=== PATIENT | male | born 1940 | race Caucasian/White ===

== ENCOUNTER → 2018-11-25 | Emergency (ER) | payer MEDICARE ==
[~2018-11-25] MED LIST: ENOXAPARIN SODIUM SQ ONE; ENOXAPARIN SODIUM SQ STA; Sodium Chloride 0.9% 1000 ML 1,000 ML IV STA; Sodium Chloride 0.9% 1000 ML 1,000 ML ONE
--- NOTE | 2018-11-25 12:11 | ERPHSYRPT ---
- History of Present Illness Time Seen by Provider: 11/25/18 11:59 Source: patient, EMS Exam Limitations: no limitations Physician History: The patient is an 78-year-old male brought in by ambulance from [facility] where he had a near syncopal episode (dizziness). He has been having frequent dizzy spells recently. He states that the dizziness started at least 2 years ago. 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 His daughter does not think his traffic agent knows about them. When he has a dizzy spell, his heart rate increases very high. He states his blood pressure goes low. It would then resolve after several minutes to an hour. He denies chest pain or shortness of breath. He denies nausea or vomiting. His past medical history significant for HTN, GERD, BPH, cardiac stent, CAD, and high cholesterol. Witnessed: bystander Prior Episodes: single episode today Timing/Duration: today, resolved prior to arrival, sudden Precipitating Factors: none Context: standing Loss of Consciousness: no loss of consciousness, dazed Charcter of event(s): felt faint Allergies/Adverse Reactions: No Known Drug Allergies Allergy (Verified 11/25/18 12:00) Home Medications: Aspirin [Aspirin EC] 81 mg PO DAILY 01/04/14 [History] Finasteride 5 mg [Proscar 5 MG] 5 mg PO DAILY 01/04/14 [History] Fluticasone Propionate [Flonase NASAL] 2 spray NS DAILY 01/04/14 [History] Metoprolol Succinate 25 mg Xl* [Toprol-Xl 25MG Tablets] 12.5 mg PO BID [History] Multivitamin [Multivitamins] 1 each PO DAILY 01/04/14 [History] [place]-3 Fatty Acids/Fish Oil [Fish Oil 1,000 mg Capsule] 1,000 mg PO DAILY 01/04/14 [History] Pravastatin Sodium [Pravachol] 40 mg PO BID 01/04/14 [History] Pregabalin [Lyrica] 150 mg PO BID 01/04/14 [History] Vitamin B Complex [B Complex] 1 each PO DAILY 01/04/14 [History] Clopidogrel Bisulfate 75 mg [PLAVIX 75 MG Tablet] 75 mg PO HS 11/25/18 [ History] Docusate Sodium 100 mg [Colace 100 MG] 100 mg PO DAILY 11/25/18 [History] Isosorbide Mononitrate 30 mg [Imdur 30 MG] 30 mg PO DAILY 11/25/18 [History ] LORazepam [Lorazepam] 1 mg PO TID 11/25/18 [History] Lisinopril [Zestril] 5 mg PO BID 11/25/18 [History] Ranitidine HCl [Zantac] 300 mg PO DAILY 11/25/18 [History] Tamsulosin HCl 0.4 mg [Flomax 0.4 MG] 0.8 mg PO DAILY 11/25/18 [History] Hx Influenza Vaccination/Date Given: Yes (2012) Hx Pneumococcal Vaccination/Date Given: Yes (2012) - Past Medical History Pertinent Past Medical History: Yes Neurological History: Peripheral Neuropathy ENT History: No Pertinent History Cardiac History: Angina, Coronary Artery Disease Respiratory History: COPD, Other Endocrine Medical History: No Pertinent History Musculoskeletal History: Arthritis GI Medical History: GERD History: No Pertinent History Psycho-Social History: No Pertinent History Male Reproductive Disorders: Prostate Problems Other Medical History: benign prostatic hyperplasia. allery seasonal. - Past Surgical History Past Surgical History: Yes Neuro Surgical History: No Pertinent History Cardiac: Cardiac Catheterization Respiratory: No Pertinent History Gastrointestinal: No Pertinent History Genitourinary: No Pertinent History Musculoskeletal: Orthopedic Surgery Male Surgical History: No Pertinent History Other Surgical History: left knee surgery - Social History Smoking Status: Former smoker How long have you smoked: 20years Drug Use: none - Review of Systems Constitutional: No Fever, No Chills Eyes: No Symptoms Ears, Nose, & Throat: No Symptoms Respiratory: No Cough, No Dyspnea Cardiac: Palpitations, No Chest Pain, No Edema, No Syncope Abdominal/Gastrointestinal: No Abdominal Pain, No Nausea, No Vomiting, No Diarrhea Genitourinary Symptoms: No Dysuria Musculoskeletal: No Back Pain, No Neck Pain Skin: No Rash Neurological: Dizziness Psychological: No Symptoms Endocrine: No Symptoms Hematologic/Lymphatic: No Symptoms Immunological/Allergic: No Symptoms All Other Systems: Reviewed and Negative Physical Exam - Nursing Vital Signs Nursing Vital Signs: Initial Vital Signs Temperature 98.0 F 11/25/18 12:02 Pulse Rate 124 H 11/25/18 12:02 Respiratory Rate 18 11/25/18 12:02 Blood Pressure 107/69 11/25/18 12:02 O2 Sat by Pulse Oximetry 96 11/25/18 12:02 Pain Scale Pain Intensity 0 - Nina Coma Scale Best Eye Response ([place]): (4) open spontaneously Best Verbal Response (Nina): (5) oriented Best Motor Response (Nina): (6) obeys commands [place] Total: 15 - Physical Exam General Appearance: no apparent distress, alert Eye Exam: bilateral eye: normal inspection, PERRL, EOMI Ears, Nose, Throat Exam: normal ENT inspection, pharynx normal, moist mucous membranes Neck Exam: normal inspection, non-tender, supple, full range of motion Respiratory: normal breath sounds, lungs clear, No chest tenderness, No respiratory distress Cardiovascular: normal heart sounds, tachycardia Gastrointestinal: soft, No tenderness, No distention, No mass Rectal Exam: not done Back Exam: normal inspection, normal range of motion, No CVA tenderness, No vertebral tenderness Extremity Exam: normal inspection, normal range of motion, pelvis stable, No tenderness Mental Status: alert, oriented x 3, 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 Exam: normal speech, PERRL, No facial droop Coordination/Gait: normal finger to nose Motor/Sensory: no motor deficit, no sensory deficit, no pronator drift Skin Exam: normal color, warm, dry, No rash SpO2 Interpretation: normal O2 Delivery: Room Air - Course EKG Interpreted by Me: RATE, Sinus Tach, NORMAL AXIS, NORMAL INTERVALS, NORMAL QRS, Other (old anterior MS, comp EKG from 06/20/14.) - Radiology Exams Chest X-ray Interpretation: Interpreted by me, Negative (non acute 2V chest, comp 2V chest 06/05/18.) Ordered Tests: Active Orders 24 hr Category Date Time Status Phytochemistry Professor STAT Care 11/25/18 12:19 Active Clean Catch Urine Specimen STAT Care 11/25/18 12:17 Active EKG-ER Only STAT Care 11/25/18 12:17 Active IV Insertion STAT Care 11/25/18 12:17 Active Orthostatic Vital Signs STAT Care 11/25/18 12:17 Active Pulse Oximetry (ED) STAT Care 11/25/18 12:17 Active CHEST 2 VIEWS (PA AND LAT) Stat Exams 11/25/18 12:18 Taken CBC W DIFF Stat Lab 11/25/18 12:10 Completed CMP Stat Lab 11/25/18 12:10 Completed D-DIMER QUANTITATION Stat Lab 11/25/18 12:10 Completed ETHYL ALCOHOL Stat Lab 11/25/18 12:10 Completed Lactic Acid Stat Lab 11/25/18 12:20 Completed Lactic Acid Stat Lab 11/25/18 14:58 Ordered TROPONIN Q3H Lab 11/25/18 12:10 Completed TROPONIN Q3H Lab 11/25/18 15:30 Ordered TROPONIN Q3H Lab 11/25/18 18:30 Ordered TROPONIN Q3H Lab 11/25/18 21:30 Ordered TROPONIN Q3H Lab 11/26/18 00:30 Ordered UA W/RFX UR CULTURE Stat Lab 11/25/18 13:30 Completed Medication Summary Discontinued Medications Generic Name Dose Route Start Last Admin Trade Name Freq PRN Reason Stop Dose Admin Sodium Chloride 1,000 mls @ 999 mls/hr 11/25/18 12:17 11/25/18 12:45 Sodium Chloride 0.9% 1000 Ml IV 11/25/18 13:17 999 mls/hr .Q1H1M STA Administration Sodium Chloride Confirm 11/25/18 12:41 Sodium Chloride 0.9% 1000 Ml Administered 11/25/18 12:42 Dose 1,000 mls @ ud .ROUTE .STK-MED ONE Lab/Rad Data: Laboratory Result Diagrams 11/25/18 12:10 11/25/18 12:10 Laboratory Results 11/25/18 11/25/18 11/25/18 Range/Units 13:30 12:20 12:10 WBC (4.0-10.5) K/mm3 RBC (4.1-5.6) M/mm3 Hgb (12.5-18.0) gm/dl Hct (42-50) % MCV (78-100) fl MCH (26-32) pg MCHC (32-36) g/dl RDW (11.5-14.0) % Plt Count (150-450) K/mm3 MPV (6-9.5) fl Gran % (36.0-66.0) % Eos # (Auto) (0-0.5) Absolute Lymphs (auto) (1.0-4.6) Absolute Monos (auto) (0.0-1.3) Lymphocytes % (24.0-44.0) % Monocytes % (0.0-12.0) % Eosinophils % (0.00-5.0) % Basophils % (0.0-0.4) % Absolute Granulocytes (1.4-6.9) Basophils # (0-0.4) D-Dimer (215-500) ng/mL Sodium (137-145) mmol/L Potassium (3.5-5.1) mmol/L Chloride (98-107) mmol/L Carbon Dioxide (22-30) mmol/L Anion Gap (5-15) MEQ/L BUN (9-20) mg/dL Creatinine (0.66-1.25) mg/dL Estimated GFR ML/MIN Glucose (74-106) mg/dL Lactic Acid 2.1 H (0.4-2.0) Calcium (8.4-10.2) mg/dL Total Bilirubin (0.2-1.3) mg/dL AST (17-59) U/L ALT (0-50) U/L Alkaline Phosphatase (38-126) U/L Troponin I 0.019 (0.000-0.034) ng/mL Serum Total Protein (6.3-8.2) g/dL Albumin (3.5-5.0) g/dL Urine Color YELLOW (YELLOW) Urine Appearance SLIGHTLY CLOUDY (CLEAR) Urine pH 5.0 (5-6) Ur Specific [place] 1.014 (1.005-1.025) Urine Protein 30 (Negative) Urine Ketones SMALL (NEGATIVE) Urine Blood NEGATIVE (0-5) Josep/ul Urine Nitrite NEGATIVE (NEGATIVE) Urine Bilirubin NEGATIVE (NEGATIVE) Urine Urobilinogen NEGATIVE (0-1) mg/dL Ur Leukocyte Esterase NEGATIVE (NEGATIVE) Urine WBC (Auto) 0-2 (0-5) /HPF Urine RBC (Auto) NONE (0-2) /HPF U Hyaline Cast (Auto) 3-5 (0-2) /LPF U Epithel Cells (Auto) RARE (FEW) /HPF Urine Bacteria (Auto) RARE (NEGATIVE) /HPF Other Casts (Auto) 0-2 (NEGATIVE) /LPF Urine Mucus (Auto) SLIGHT (NEGATIVE) /HPF Urine Culture Reflexed NO (NO) Urine Glucose NEGATIVE (NEGATIVE) mg/dL Ethyl Alcohol (0-10) mg/dL 11/25/18 11/25/18 11/25/18 Range/Units 12:10 12:10 12:10 WBC 12.1 H (4.0-10.5) K/mm3 RBC 4.19 (4.1-5.6) M/mm3 Hgb 13.9 (12.5-18.0) gm/dl Hct 41.7 L (42-50) % MCV 99.5 (78-100) fl MCH 33.2 H (26-32) pg MCHC 33.3 (32-36) g/dl RDW 13.4 (11.5-14.0) % Plt Count 238 (150-450) K/mm3 MPV 10.8 H (6-9.5) fl Gran % 65.0 (36.0-66.0) % Eos # (Auto) 0.18 (0-0.5) Absolute Lymphs (auto) 3.08 (1.0-4.6) Absolute Monos (auto) 0.93 (0.0-1.3) Lymphocytes % 25.4 (24.0-44.0) % Monocytes % 7.7 (0.0-12.0) % Eosinophils % 1.5 (0.00-5.0) % Basophils % 0.4 (0.0-0.4) % Absolute Granulocytes 7.90 H (1.4-6.9) Basophils # 0.05 (0-0.4) D-Dimer 1276 H* (215-500) ng/mL Sodium 138 (137-145) mmol/L Potassium 4.4 (3.5-5.1) mmol/L Chloride 101 (98-107) mmol/L Carbon Dioxide 22 (22-30) mmol/L Anion Gap 19.9 H (5-15) MEQ/L BUN 17 (9-20) mg/dL Creatinine 1.80 H (0.66-1.25) mg/dL Estimated GFR 38.9 ML/MIN Glucose 126 H (74-106) mg/dL Lactic Acid (0.4-2.0) Calcium 9.9 (8.4-10.2) mg/dL Total Bilirubin 1.10 (0.2-1.3) mg/dL AST 33 (17-59) U/L ALT 20 (0-50) U/L Alkaline Phosphatase 114 (38-126) U/L Troponin I (0.000-0.034) ng/mL Serum Total Protein 8.0 (6.3-8.2) g/dL Albumin 4.9 (3.5-5.0) g/dL Urine Color (YELLOW) Urine Appearance (CLEAR) Urine pH (5-6) Ur Specific [place] (1.005-1.025) Urine Protein (Negative) Urine Ketones (NEGATIVE) Urine Blood (0-5) Josep/ul Urine Nitrite (NEGATIVE) Urine Bilirubin (NEGATIVE) Urine Urobilinogen (0-1) mg/dL Ur Leukocyte Esterase (NEGATIVE) Urine WBC (Auto) (0-5) /HPF Urine RBC (Auto) (0-2) /HPF U Hyaline Cast (Auto) (0-2) /LPF U Epithel Cells (Auto) (FEW) /HPF Urine Bacteria (Auto) (NEGATIVE) /HPF Other Casts (Auto) (NEGATIVE) /LPF Urine Mucus (Auto) (NEGATIVE) /HPF Urine Culture Reflexed (NO) Urine Glucose (NEGATIVE) mg/dL Ethyl Alcohol < 10 (0-10) mg/dL - Progress Progress: improved Progress Note: 11/25/18 13:22 Discussed to findings with Dr Fong who recommends [facility]. Pt and daughter agree. 11/25/18 15:12 Dr Carmen accepts pt to [facility] ER. Discussed with : Hetal Counseled pt/family regarding: lab results, diagnosis, rad results - Departure Time of Disposition: 13:23 Departure Disposition: Transfer (Transfer to [facility] ER per Dr Carmen) Clinical Impression: Dizziness, Acute renal insufficiency, Elevated d-dimer Condition: Stable Critical Care Time: No Referrals: STEVEN MARIA [Primary Care Provider] -
[2018-11-25 12:39] LABS: BASOPHIL % 0.4 % (0.0-0.4); Basophil (Absolute #) 0.05 (0-0.4); Eosinophil % 1.5 % (0.00-5.0); Eosinophil (Absolute #) 0.18 (0-0.5); Hematocrit 41.7 % (42-50); Hemoglobin 13.9 gm/dl (12.5-18.0); Lymphocyte (Absolute #) 3.08 (1.0-4.6); Lymphocytes % 25.4 % (24.0-44.0); Mean Cell Volume 99.5 fl (78-100); Mean Corpuscular Hemoglobin 33.2 pg (26-32); Mean Corpuscular Hgb Concent. 33.3 g/dl (32-36); Mean Platelet Volume 10.8 fl (6-9.5); Monocyte (Absolute #) 0.93 (0.0-1.3); Monocytes % 7.7 % (0.0-12.0); Platelet Count 238 K/mm3 (150-450); Red Blood Count 4.19 M/mm3 (4.1-5.6); Red Cell Distribution Width 13.4 % (11.5-14.0); White Blood Count 12.1 K/mm3 (4.0-10.5)
[2018-11-25 12:44] LABS: ALBUMIN 4.9 g/dL (3.5-5.0); ALKALINE PHOSPHATASE 114 U/L (38-126); ANION GAP 19.9 MEQ/L (5-15); BLOOD UREA NITROGEN 17 mg/dL (9-20); CHLORIDE 101 mmol/L (98-107); Calcium 9.9 mg/dL (8.4-10.2); Carbon Dioxide 22 mmol/L (22-30); Glucose 126 mg/dL (74-106); Potassium 4.4 mmol/L (3.5-5.1); SGOT/AST 33 U/L (17-59); SGPT/ALT 20 U/L (0-50); SODIUM 138 mmol/L (137-145)
[2018-11-25 12:46] LABS: ETHYL ALCOHOL < 10 mg/dL (0-10)
[2018-11-25 12:58] LABS: Lactic Acid 2.1 (0.4-2.0)
[2018-11-25 14:22] LABS: Appearance SLIGHTLY CLOUDY (CLEAR); Bacteria RARE /HPF (NEGATIVE); Bilirubin NEGATIVE (NEGATIVE); Blood NEGATIVE Ery/ul (0-5); Epithelial Cells RARE /HPF (FEW); Glucose NEGATIVE (NEGATIVE); Ketones SMALL (NEGATIVE); Leukocyte Esterase NEGATIVE (NEGATIVE); Mucus SLIGHT /HPF (NEGATIVE); Nitrite NEGATIVE (NEGATIVE); Protein,Urine Dip 30 (Negative); Specific Gravity 1.014 (1.005-1.025); Urobilinogen NEGATIVE mg/dL (0-1); WBC 0-2 /HPF (0-5)
[2018-11-25 15:13] VITALS: PULSE 61
[2018-11-25 16:23] VITALS: BP 132/72; O2SAT 97
--- NOTE | 2018-11-26 00:29 | XRAY ---
Indication: Dizziness. Tachycardia. Comparison: June 05, 2018. PA/lateral chest less inflated today crowding the lung bases. Stable minimal right midlung fibrosis/scarring. Remaining heart and lungs unremarkable. Bony thorax intact again with mild degenerative changes. Impression: Nonacute underinflated chest again with chronic features.
== END | disposition short-term general hospital (02) ==
LOC: ED 11:58
DX: R42 Dizziness and giddiness (principal); N28.9 Disorder of kidney and ureter, unspecified; R79.89 Other specified abnormal findings of blood chemistry; Z79.899 Other long term (current) drug therapy; G62.9 Polyneuropathy, unspecified; I25.10 Atherosclerotic heart disease of native coronary artery without angina pectoris; J44.9 Chronic obstructive pulmonary disease, unspecified; M19.90 Unspecified osteoarthritis, unspecified site; K21.9 Gastro-esophageal reflux disease without esophagitis
CPT/HCPCS: 36000; 36415; 71046; 80053; 81001; 83605; 84484; 85025; 85379; 93005; 93041; 96372; 99284; G0480; 80307; 96374; J1650

== ENCOUNTER 2019-10-25 10:52 | Observation (INO) | payer MEDICARE ==
[2019-10-25 11:21] LABS: Absolute Neutrophil Ct (ANC) 8.68 (1.4-6.9); BASOPHIL % 0.4 % (0.0-0.4); Basophil (Absolute #) 0.05 (0-0.4); Eosinophil % 0.8 % (0.00-5.0); Hematocrit 38.3 % (42-50); Hemoglobin 12.8 gm/dl (12.5-18.0); Lymphocyte (Absolute #) 2.24 (1.0-4.6); Lymphocytes % 18.3 % (24.0-44.0); Mean Cell Volume 99.7 fl (78-100); Mean Corpuscular Hemoglobin 33.3 pg (26-32); Mean Corpuscular Hgb Concent. 33.4 g/dl (32-36); Mean Platelet Volume 9.3 fl (7.5-11.0); Monocyte (Absolute #) 1.17 (0.0-1.3); Monocytes % 9.6 % (0.0-12.0); Neutrophil % 70.9 % (36.0-66.0); Platelet Count 434 K/mm3 (150-450); Red Blood Count 3.84 M/mm3 (4.1-5.6); Red Cell Distribution Width 12.9 % (11.5-14.0); White Blood Count 12.2 K/mm3 (4.0-10.5)
[2019-10-25 11:52] LABS: ALBUMIN 4.1 g/dL (3.5-5.0); ANION GAP 21.3 MEQ/L (5-15); BILIRUBIN,TOTAL 0.8 mg/dL (0.2-1.3); Calcium 9.4 mg/dL (8.4-10.2); Creatinine 1 1.78 mg/dL (0.66-1.25); Potassium 4.3 mmol/L (3.5-5.1); TROPONIN 0.022 ng/mL (0.000-0.034); Total Protein 7.7 g/dL (6.3-8.2)
[2019-10-25] MEDS: Sodium Chloride 0.9% 1000 ML 1,000 ML IV SCH (12:19)
[2019-10-25] MEDS: ROCEPHIN 1 Gm-D5w 50 ml Bag** 1 G/50 ML IVPB IV SCH (12:19)
--- NOTE | 2019-10-25 13:07 | XRAY ---
Indication: Syncope and weakness. Posterior head injury following fall. Multiple contiguous axial images obtained through the head without contrast. Comparison: None Age-appropriate global atrophy. No acute intracranial hemorrhage, abnormal extra-axial fluid collection, or mass effect. Fourth ventricle is midline without hydrocephalus. Bony calvarium intact. Minimal opacification of both mastoid air cells. Visualized paranasal sinuses are clear. Impression: 1. No acute intracranial abnormalities. 2. Atrophy within normal limits for patient's age. 3. Partial opacification both mastoid air cells presumed inflammatory.
--- NOTE | 2019-10-25 14:34 | XRAY ---
Indication: Syncope. Status post fall. Two-dimensional sonogram and color Doppler imaging of the carotid arteries of the neck performed. Comparison: None Examination of the right carotid circulation demonstrates minimal heterogeneous plaquing at the level of the bulb slightly extending into the origin of the external carotid artery. There is mild heterogeneous eccentric plaquing in the proximal internal carotid artery. PSV of the CCA is 70 cm/s. PSV of the ICA is 76 cm/s. ICA/CCA ratio is 1.1. Normal antegrade vertebral artery flow. Examination of the left carotid circulation demonstrates minimal heterogeneous plaquing of the level of the bulb slightly extending to the origin of the external carotid artery. There is minimal/mild calcified plaquing in the proximal internal carotid artery. PSV of the CCA is 96 cm/s. PSV of the ICA is 88 cm/s. ICA/CCA ratio is 0.9. Normal antegrade vertebral artery flow. Impression: Minimal/mild plaquing bilaterally. Velocity measurements and ratios are negative for hemodynamically significant flow-limiting stenosis.
[2019-10-25] MEDS: Proscar 5 MG PO SCH (17:14)
[2019-10-25] MEDS: ZOCOR 20MG PO SCH (17:14)
[2019-10-25] MEDS: Flomax 0.4 MG PO SCH (17:14)
[2019-10-25] MEDS: ECOTRIN 81 MG PO SCH (17:15)
[2019-10-25] MEDS: Colace 100 MG PO SCH (17:15)
[2019-10-25] MEDS: Pepcid 20 MG PO SCH (17:15)
[2019-10-25] MEDS: Zestril 5 MG PO SCH (17:17)
[2019-10-25] MEDS ORDERED: Ativan 1 MG PO SCH (22:00)
[2019-10-25] MEDS ORDERED: PLAVIX 75 MG Tablet PO SCH (22:00)
[2019-10-25] MEDS: Imdur 30 MG PO SCH (22:30)
[2019-10-25] MEDS: NEURONTIN 300 MG PO SCH (22:32)
[2019-10-26] MEDS: Sodium Chloride 0.9% 1000 ML 1,000 ML IV SCH (03:41)
[2019-10-26 07:28] VITALS: BP 126/60; PULSE 51; O2SAT 98
--- NOTE | 2019-10-26 08:20 | ECHO ---
DATE OF PROCEDURE: 10/25/2019 CLINICAL INFORMATION: Syncope, weakness and urinary tract infection. The M-mode 2D, and Doppler echocardiogram including color flow Doppler shows the left ventricle is normal in size at 5.5 cm. There is no thrombus noted. The septal wall thickness is normal at 0.8 cm. The left ventricular posterior wall thickness is increased at 1.4 cm. The left ventricular systolic function is moderate to severely decreased with an ejection fraction estimated at 25 to 30%. The mitral valve E to A inflow velocity ratio is decreased at 0.7 consistent with impaired left ventricular relaxation. The right ventricle appears to be moderately dilated. The left atrium is 4.0 cm. The interatrial septum is intact. The right atrium is dilated. The aortic valve opens well. There is a trace amount of aortic regurgitation. There is mitral valve leaflet thickening and calcification associated with trace amount of mitral regurgitation present. There is mild to moderate tricuspid regurgitation. The right ventricular systolic pressure is elevated at 32 mm of [place]. The pulmonic valve is not well visualized. There is mild pulmonic regurgitation. The aortic root is normal at 3.5 cm. There is no pericardial effusion present. IMPRESSION: 1) MODERATE TO SEVERE DECREASE IN LEFT VENTRICULAR SYSTOLIC FUNCTION. 2) MILD ASYMMETRIC LEFT VENTRICULAR HYPERTROPHY. 3) EVIDENCE OF IMPAIRED LEFT VENTRICULAR RELAXATION. 4) TRACE AMOUNT OF AORTIC REGURGITATION. 5) MILD TO MODERATE TRICUSPID REGURGITATION. 6) MILD PULMONARY HYPERTENSION. 7) MILD PULMONIC REGURGITATION.
--- NOTE | 2019-10-26 08:51 | PCM.SSS ---
History of Present Illness - Chief Complaint Chief Complaint: UTI, weakness History of Present Illness: is a 79 year old male with a recent fall, syncope and unsteady gait in office. found to have UTI, bp meds have been held and he is being treated for UTI, his gait is much more stable and he is feeling dramatically better since admission. His head CT was negative. - Review of Systems Constitutional: No Fever, No Chills Respiratory: No Cough, No Short Of Breath Cardiac: No Chest Pain, No Edema, No Syncope Abdominal/Gastrointestinal: No Abdominal Pain, No Nausea, No Vomiting, No Diarrhea All Other Systems: Reviewed and Negative Medications & Allergies Home Medications: Home Medication List Aspirin [Aspirin EC] 81 mg PO DAILY 01/04/14 [History Confirmed 10/25/19] Finasteride 5 mg [Proscar 5 MG] 5 mg PO DAILY 01/04/14 [History Confirmed 10/25/19] Fluticasone Propionate [Flonase NASAL] 2 spray NS DAILY 01/04/14 [History Confirmed 10/25/19] Hur[place]-3 Fatty Acids/Fish Oil [Fish Oil 1,000 mg Capsule] 1,000 mg PO DAILY 01/04/14 [History Confirmed 10/25/19] Pravastatin Sodium [Pravachol] 20 mg PO DAILY 01/04/14 [History Confirmed ] Vitamin B Complex [B Complex] 1 each PO DAILY 01/04/14 [History Confirmed ] Clopidogrel Bisulfate 75 mg [PLAVIX 75 MG Tablet] 75 mg PO HS 11/25/18 [ History Confirmed 10/25/19] Docusate Sodium 100 mg [Colace 100 MG] 100 mg PO DAILY 11/25/18 [History Confirmed 10/25/19] Isosorbide Mononitrate 30 mg [Imdur 30 MG] 15 mg PO BID 11/25/18 [History Confirmed 10/25/19] LORazepam [Lorazepam] 2 mg PO QHS 11/25/18 [History Confirmed 10/25/19] Tamsulosin HCl 0.4 mg [Flomax 0.4 MG] 0.4 mg PO DAILY 11/25/18 [History Confirmed 10/25/19] raNITIdine HCl [Zantac] 300 mg PO DAILY 11/25/18 [History Confirmed 10/25/19] Gabapentin 300 mg PO BID 10/25/19 [History Confirmed 10/25/19] Sulfamethoxazole/Trimethoprim [Bactrim Ds Tablet] 1 each PO BID #10 tablet 10/26 [Rx] Allergies/Adverse Reactions: Allergies Allergy/AdvReac Type Severity Reaction Status Date / Time No Known Drug Allergies Allergy Verified 11/25/18 12:00 - Past Medical History Past Medical History: Yes Neurological History: Peripheral Neuropathy ENT History: No Pertinent History Cardiac History: Angina, Coronary Artery Disease, Myocardial Infarction ([place]) Respiratory History: COPD, Other Endocrine Medical History: No Pertinent History Musculoskelatal History: Arthritis GI Medical History: GERD, Other History: No Pertinent History Pyscho-Social History: No Pertinent History Male Reproductive Disorders: Prostate Problems Comment: benign prostatic hyperplasia. allergy seasonal. - Past Surgical History Past Surgical History: Yes Neuro Surgical History: No Pertinent History Cardiac History: Cardiac Catheterization, Cardiac Stent Respiratory Surgery: No Pertinent History GI Surgical History: No Pertinent History Genitourinary Surgical Hx: No Pertinent History Musculskeletal Surgical Hx: Orthopedic Surgery Male Surgical History: No Pertinent History Other Surgical History: left knee surgery - Social History Smoking Status: Former smoker How long have you smoked: 20years Exposure to second hand smoke: No Alcohol: Weekly Drug Use: none - Physical Exam Vital Signs: Vital Signs - 24 hr Temp Pulse Resp BP Pulse Ox 10/26/19 07:27 98.2 F 51 L 20 126/60 98 10/26/19 04:00 98.2 F 57 L 20 120/67 97 10/26/19 00:00 98.2 F 57 L 20 120/67 97 10/25/19 20:00 98.0 F 60 18 103/50 98 10/25/19 16:00 97 F 48 L 16 125/57 96 10/25/19 15:28 48 L 20 122/50 10/25/19 11:53 97.9 F 56 L 18 115/57 10/25/19 10:57 97.9 F 56 L 18 115/57 General Appearance: no apparent distress, alert Neurologic Exam: alert, oriented x 3, cooperative, normal mood/affect, nml cerebellar function, nml station & gait, sensation nml, No motor deficits Respiratory Exam: normal breath sounds, lungs clear, No respiratory distress Cardiovascular Exam: regular rate/rhythm, normal heart sounds, normal peripheral pulses Gastrointestinal/Abdomen Exam: soft, normal bowel sounds, No tenderness, No mass Extremity Exam: normal inspection, normal range of motion, pelvis stable Wound Assessment: Skin/Wound Assessment Wound/Incision Assessment Start: 10/25/19 12: 34 Text: Status: Active Freq: Q6H Protocol: Document 10/26/19 02:00 LB (Rec: 10/26/19 07:00 LB [id number]) Wound/Incision Assessment Right Arm Wound Assessment Shift Assessment Wound Type Skin Tear Drainage Amount Minimal Primary Dressing Bandaid Comment bandage in place Head Wound Assessment Shift Assessment Wound Type Laceration Wound Stage Non Pressure Wound Drainage Amount Minimal Primary Dressing Bandaid Comment bandage in place Wound Photo Photo Taken Yes Comment: in chart Results - Labs Lab/Micro Results: Lab Results-Last 24 Hours 10/25/19 10/25/19 Range/Units 11:00 11:00 WBC 12.2 H (4.0-10.5) K/mm3 RBC 3.84 L (4.1-5.6) M/mm3 Hgb 12.8 (12.5-18.0) gm/dl Hct 38.3 L (42-50) % MCV 99.7 (78-100) fl MCH 33.3 H (26-32) pg MCHC 33.4 (32-36) g/dl RDW 12.9 (11.5-14.0) % Plt Count 434 (150-450) K/mm3 MPV 9.3 (7.5-11.0) fl Gran % 70.9 H (36.0-66.0) % Eos # (Auto) 0.10 (0-0.5) Absolute Lymphs (auto) 2.24 (1.0-4.6) Absolute Monos (auto) 1.17 (0.0-1.3) Lymphocytes % 18.3 L (24.0-44.0) % Monocytes % 9.6 (0.0-12.0) % Eosinophils % 0.8 (0.00-5.0) % Basophils % 0.4 (0.0-0.4) % Absolute Granulocytes 8.68 H (1.4-6.9) Basophils # 0.05 (0-0.4) Sodium 134 L (137-145) mmol/L Potassium 4.3 (3.5-5.1) mmol/L Chloride 96 L (98-107) mmol/L Carbon Dioxide 21 L (22-30) mmol/L Anion Gap 21.3 H (5-15) MEQ/L BUN 19 (9-20) mg/dL Creatinine 1.78 H (0.66-1.25) mg/dL Estimated GFR 39.3 ML/MIN Glucose 157 H (74-106) mg/dL Calcium 9.4 (8.4-10.2) mg/dL Total Bilirubin 0.80 (0.2-1.3) mg/dL AST 31 (17-59) U/L ALT 21 (0-50) U/L Alkaline Phosphatase 89 (38-126) U/L Troponin I 0.022 (0.000-0.034) ng/mL Serum Total Protein 7.7 (6.3-8.2) g/dL Albumin 4.1 (3.5-5.0) g/dL - Radiology Impressions Radiology Exams & Impressions: Radiology Procedures Category Date Time Status CAROTID BILATERAL [US] Routine Exams 10/25/19 11:10 Completed ECHO W/2D AND DOPPLER [US] Routine Exams 10/25/19 11:10 Draft HEAD WITHOUT CONTRAST [CT] Routine Exams 10/25/19 11:10 Completed Assessment/Plan (1) UTI (urinary tract infection) Current Visit: Yes Status: Acute Code(s): N39.0 - URINARY TRACT INFECTION, SITE NOT SPECIFIED (2) Fall Current Visit: Yes Status: Acute Code(s): W19.XXXA - UNSPECIFIED FALL, INITIAL ENCOUNTER (3) Closed head injury Current Visit: Yes Status: Acute Code(s): S09.90XA - UNSPECIFIED INJURY OF HEAD, INITIAL ENCOUNTER (4) Weakness Current Visit: Yes Status: Acute Code(s): R53.1 - WEAKNESS (5) Bradycardia Current Visit: Yes Status: Acute Assessment & Plan: gamaliel/hypotension resolved with d/c metoprolol, will d/c per home Code(s): R00.1 - BRADYCARDIA, UNSPECIFIED (6) Hypotension Current Visit: Yes Status: Acute Code(s): I95.9 - HYPOTENSION, UNSPECIFIED Hospital Summary - Vitals & Intake/Output Vital Signs: Vital Signs Temperature 98.2 F 10/26/19 07:27 Pulse Rate 51 L 10/26/19 07:27 Respiratory Rate 20 10/26/19 07:27 Blood Pressure 126/60 10/26/19 07:27 O2 Sat by Pulse Oximetry 98 10/26/19 07:27 Intake & Output: Intake & Output 10/23/19 10/24/19 10/25/19 10/26/19 11:59 11:59 11:59 11:59 Intake Total 1551 Output Total 1050 Balance 501 Weight 75.7 kg - Lab Result Diagrams: 10/25/19 11:00 10/25/19 11:00 Lab Results-Last 24 Hrs: Lab Results-Last 24 Hours 10/25/19 10/25/19 Range/Units 11:00 11:00 WBC 12.2 H (4.0-10.5) K/mm3 RBC 3.84 L (4.1-5.6) M/mm3 Hgb 12.8 (12.5-18.0) gm/dl Hct 38.3 L (42-50) % MCV 99.7 (78-100) fl MCH 33.3 H (26-32) pg MCHC 33.4 (32-36) g/dl RDW 12.9 (11.5-14.0) % Plt Count 434 (150-450) K/mm3 MPV 9.3 (7.5-11.0) fl Gran % 70.9 H (36.0-66.0) % Eos # (Auto) 0.10 (0-0.5) Absolute Lymphs (auto) 2.24 (1.0-4.6) Absolute Monos (auto) 1.17 (0.0-1.3) Lymphocytes % 18.3 L (24.0-44.0) % Monocytes % 9.6 (0.0-12.0) % Eosinophils % 0.8 (0.00-5.0) % Basophils % 0.4 (0.0-0.4) % Absolute Granulocytes 8.68 H (1.4-6.9) Basophils # 0.05 (0-0.4) Sodium 134 L (137-145) mmol/L Potassium 4.3 (3.5-5.1) mmol/L Chloride 96 L (98-107) mmol/L Carbon Dioxide 21 L (22-30) mmol/L Anion Gap 21.3 H (5-15) MEQ/L BUN 19 (9-20) mg/dL Creatinine 1.78 H (0.66-1.25) mg/dL Estimated GFR 39.3 ML/MIN Glucose 157 H (74-106) mg/dL Calcium 9.4 (8.4-10.2) mg/dL Total Bilirubin 0.80 (0.2-1.3) mg/dL AST 31 (17-59) U/L ALT 21 (0-50) U/L Alkaline Phosphatase 89 (38-126) U/L Troponin I 0.022 (0.000-0.034) ng/mL Serum Total Protein 7.7 (6.3-8.2) g/dL Albumin 4.1 (3.5-5.0) g/dL - Radiology Exams Ordered Rad Exams-Entire Visit: Radiology Procedures Category Date Time Status CAROTID BILATERAL [US] Routine Exams 10/25/19 11:10 Completed ECHO W/2D AND DOPPLER [US] Routine Exams 10/25/19 11:10 Draft HEAD WITHOUT CONTRAST [CT] Routine Exams 10/25/19 11:10 Completed - Procedures and Test Procedures and Tests throughout Hospitalization: Therapy Orders & Screens 10/25/19 11:10 EKG ROUTINE Comment: Diagnosis: uti,weakness,syncope 10/25/19 12:34 OT Screen per Nursing Assess Comment: Protocol Order Physician Instructions: Greater than 3 points order OT Admission Screening Reason For Exam: Triggered on Admission Diagnosis: UTI, weakness Open Wound/Cellutlitis/Pressure Ulcers: Yes: skin tears multiple Acute Fx/ORIF/Change in wt bearing status: No Severe MUSCULOSKELETAL pain: No ADL Dysfunction: No Acute CVA w/Hemiparesis/Hemiplegia: No Decreased Functional Mobility/Strength: Yes Sprain/Strain: No Acute Post-op Mobility Dysfunction: No Total Points: 6 PT Screen per Nursing Assess Comment: Protocol Order Physician Instructions: Greater than 3 points order PT Admission Screenin Reason For Exam: Triggered on Admission Diagnosis: UTI, weakness Open Wound/Cellutlitis/Pressure Ulcers: Yes: skin tears multiple Acute Fx/ORIF/Change in wt bearing status: No Severe MUSCULOSKELETAL pain: No ADL Dysfunction: No Acute CVA w/Hemiparesis/Hemiplegia: No Decreased Functional Mobility/Strength: Yes Sprain/Strain: No Acute Post-op Mobility Dysfunction: No Total Points: 6 10/25/19 16:13 EKG ROUTINE Comment: Diagnosis: UTI, weakness - Discharge Disposition: Home, Self-Care Condition: Stable Prescriptions: New Sulfamethoxazole/Trimethoprim [Bactrim Ds Tablet] 1 each PO BID #10 tablet Continue Aspirin [Aspirin EC] 81 mg PO DAILY Pravastatin Sodium [Pravachol] 20 mg PO DAILY Fluticasone Propionate [Flonase NASAL] 2 spray NS DAILY Hurlock-3 Fatty Acids/Fish Oil [Fish Oil 1,000 mg Capsule] 1,000 mg PO DAILY Finasteride 5 mg [Proscar 5 MG] 5 mg PO DAILY Vitamin B Complex [B Complex] 1 each PO DAILY LORazepam [Lorazepam] 2 mg PO QHS Tamsulosin HCl 0.4 mg [Flomax 0.4 MG] 0.4 mg PO DAILY raNITIdine HCl [Zantac] 300 mg PO DAILY Isosorbide Mononitrate 30 mg [Imdur 30 MG] 15 mg PO BID Docusate Sodium 100 mg [Colace 100 MG] 100 mg PO DAILY Clopidogrel Bisulfate 75 mg [PLAVIX 75 MG Tablet] 75 mg PO HS Gabapentin 300 mg PO BID Discontinued Metoprolol Succinate 25 mg Xl* [Toprol-Xl 25MG Tablets] 12.5 mg PO BID lisinopriL [Zestril] 2.5 mg PO DAILY Follow up with: JAYDA GONSALEZ MD [Primary Care Provider] - 1 Week
[2019-10-26] MEDS: ROCEPHIN 1 Gm-D5w 50 ml Bag** 1 G/50 ML IVPB IV SCH (08:59)
[2019-10-26] MEDS: Pepcid 20 MG PO SCH (09:00)
[2019-10-26] MEDS: Imdur 30 MG PO SCH (09:00)
[2019-10-26] MEDS: NEURONTIN 300 MG PO SCH (09:00)
[2019-10-26] MEDS: Zestril 5 MG PO SCH (09:02)
[2019-10-26] MEDS: ZOCOR 20MG PO SCH (09:02)
[2019-10-26] MEDS: Colace 100 MG PO SCH (09:02)
[2019-10-26] MEDS: Flomax 0.4 MG PO SCH (09:02)
[2019-10-26] MEDS: ECOTRIN 81 MG PO SCH (09:02)
[2019-10-26] MEDS: Proscar 5 MG PO SCH (09:03)
[2019-10-26] MEDS ORDERED: NON-FORMULARY ITEM (Pravastatin Sodium [Pravachol] 20 MG) PO SCH (10:00)
== END 2019-10-26 10:00 | disposition home or self-care (01) ==
LOC: MED SURG 10:52
PROVIDERS: ADMIT Family Medicine; ATTEND Family Medicine
DX: N39.0 Urinary tract infection, site not specified (principal); R53.1 Weakness; S09.90XA Unspecified injury of head, initial encounter; S41.111A Laceration without foreign body of right upper arm, initial encounter; J44.9 Chronic obstructive pulmonary disease, unspecified; R55 Syncope and collapse; R00.1 Bradycardia, unspecified; I95.9 Hypotension, unspecified; I25.2 Old myocardial infarction; W19.XXXA Unspecified fall, initial encounter; Z79.01 Long term (current) use of anticoagulants; Z79.899 Other long term (current) drug therapy
CPT/HCPCS: 36415; 70450; 80053; 81003; 84484; 85025; 87086; 93005; 93268; 93306; 93880; G0378; J0696; A9270-GY

== ENCOUNTER 2023-09-17 11:20 | Inpatient (IN) | payer MEDICARE ==
[2023-09-17] MEDS ORDERED: Sodium Chloride 0.9% 1000 ML 1,000 ML IV STA (11:38)
[2023-09-17] MEDS ORDERED: Sodium Chloride 0.9% 1000 ML 1,000 ML ONE (11:47)
[2023-09-17 11:58] LABS: Absolute Neutrophil Ct (ANC) 7.18 x10^3/uL (1.4-6.9); BASOPHIL % 0.2 % (0.0-0.4); Basophil (Absolute #) 0.02 x10^3/uL (0-0.4); Eosinophil % 0.2 % (0.00-5.0); Eosinophil (Absolute #) 0.02 x10^3/uL (0-0.5); Hematocrit 35.1 % (42-50); Hemoglobin 11.7 g/dL (12.5-18.0); IMMATURE GRAN # 0.03 x10^3u/L (0.00-0.03); IMMATURE GRAN % 0.3 % (0.00-0.4); Lymphocyte (Absolute #) 1.38 x10^3/uL (1.0-4.6); Lymphocytes % 14.5 % (24.0-44.0); Mean Cell Volume 104.2 fL (78-100); Mean Corpuscular Hemoglobin 34.7 pg (26-32); Mean Corpuscular Hgb Concent. 33.3 g/dL (32-36); Mean Platelet Volume 9.2 fL (7.5-11.0); Monocytes % 9.4 % (0.0-12.0); Neutrophil % 75.4 % (36.0-66.0); Platelet Count 176 x10^3/uL (150-450); Red Blood Count 3.37 x10^6/uL (4.1-5.6); Red Cell Distribution Width 13.6 % (11.5-14.0); White Blood Count 9.5 x10^3/uL (4.0-10.5)
--- NOTE | 2023-09-17 12:00 | ERPHSYRPT ---
- History of Present Illness Time Seen by Provider: 09/17/23 11:56 Source: patient, family, EMS Exam Limitations: no limitations Patient Subjective Stated Complaint: Pt fell yesterday during a syncopal episode and injured his right foot/ankle and the pain goes up to his knee Triage Nursing Assessment: Pt brought to the ER by EMS, vitals wnl, denies pain while laying in the bed, right foot is swollen and bruised, pt states that the pain goes up to his knee, pt states that he has been passing out frequently lately and reports having his pacemaker interrogated and there isn't any problem, orthostatics are positive, pulses normal in foot, daughter states that he has been confused, no difficulty with breathing Physician History: Pt fell yesterday during a syncopal episode and injured his right foot/ankle and the pain goes up to his knee pt states that the pain goes up to his knee, pt states that he has been passing out frequently lately and reports having his pacemaker interrogated and there isn't any problem, orthostatics are positive, pulses normal in foot, daughter states that he has been confused, no difficulty with breathing Patient is 83-year-old male with significant past medical history of congestive cardiomyopathy s/p pacemaker orthostatic hypotension chronic renal insufficiency has been getting frequent falls at home. He lives by himself at home. According to the daughter patient is getting weaker and weaker and gets shaky when he tried to stand up. Yesterday night patient fell and injured his right ankle which he went was looking to the ER it was bruised and swollen. Patient is able to walk or stand on that foot and ankle on the right side without any problem. Patient states that when he tried to get stand up he gets extremely dizzy and shaky and then he falls. Patient has a pacemaker placement approximately 2 to 3 years ago. 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 Associated Symptoms: syncope, weakness Allergies/Adverse Reactions: No Known Drug Allergies Allergy (Verified 09/17/23 11:46) Home Medications: Aspirin [Aspirin EC] 81 mg PO DAILY 01/04/14 [History] Pravastatin Sodium [Pravachol] 80 mg PO DAILY 01/04/14 [History] Tamsulosin HCl 0.4 mg [Flomax 0.4 MG] 0.4 mg PO DAILY 11/25/18 [History] Duloxetine HCl [Cymbalta] 60 mg PO DAILY 09/17/23 [History] Empagliflozin [Jardiance] 10 mg PO DAILY 09/17/23 [History] Famotidine 20 mg [Pepcid 20 MG] 20 mg PO DAILY 09/17/23 [History] Finasteride 5 mg [Proscar 5 MG] 5 mg PO DAILY 09/17/23 [History] Metoprolol Tartrate 12.5 mg PO DAILY 09/17/23 [History] Midodrine HCl 2.5 mg PO DAILY 09/17/23 [History] Hx Tetanus, Diphtheria Vaccination/Date Given: Yes Hx Influenza Vaccination/Date Given: Yes Hx Pneumococcal Vaccination/Date Given: Yes Travel Risk - International Travel Have you traveled outside of the country in past 3 weeks: No - Coronavirus Screening Are you exhibiting any of the following symptoms?: No Close contact with a COVID-19 positive Pt in past 14-21 Days: No - Vaccine Status Have you recieved a Covid-19 vaccination: Yes [employer]: Moderna - Vaccination Dates Date of 2cond Vaccination (if applicable): 2020 - Review of Systems Constitutional: Weakness, No Fever, No Chills Eyes: No Symptoms Ears, Nose, & Throat: No Symptoms Respiratory: No Cough, No Dyspnea Cardiac: No Chest Pain, No Edema, No Syncope Abdominal/Gastrointestinal: No Abdominal Pain, No Nausea, No Vomiting, No Diarrhea Genitourinary Symptoms: No Dysuria Musculoskeletal: No Back Pain, No Neck Pain Skin: No Rash Neurological: Dizziness, No Focal Weakness, No Sensory Changes Psychological: No Symptoms Endocrine: No Symptoms Hematologic/Lymphatic: No Symptoms All Other Systems: Reviewed and Negative - Past Medical History Pertinent Past Medical History: Yes Neurological History: Peripheral Neuropathy ENT History: No Pertinent History Cardiac History: Other Respiratory History: COPD Endocrine Medical History: Other Musculoskeletal History: Osteoarthritis GI Medical History: GERD, Other History: No Pertinent History Psycho-Social History: No Pertinent History Male Reproductive Disorders: Prostate Problems Other Medical History: pre-diabetic, kidney infection. L knee meniscus test in 1974. - Past Surgical History Past Surgical History: Yes Neuro Surgical History: No Pertinent History Cardiac: Cardiac Catheterization, Cardiac Stent Respiratory: No Pertinent History Gastrointestinal: No Pertinent History Genitourinary: No Pertinent History Musculoskeletal: Orthopedic Surgery Male Surgical History: No Pertinent History Other Surgical History: left knee surgery - Social History Smoking Status: Former smoker How long have you smoked: 20years Exposure to second hand smoke: No Drug Use: none Patient Lives Alone: Yes - Nursing Vital Signs Nursing Vital Signs: Initial Vital Signs Temperature 97.9 F 09/17/23 11:22 Pulse Rate 82 09/17/23 11:22 Blood Pressure 103/84 09/17/23 11:22 O2 Sat by Pulse Oximetry 95 09/17/23 11:22 Pain Scale Pain Intensity 0 - Physical Exam General Appearance: mild distress, alert Eye Exam: PERRL/EOMI, eyes nml inspection Ears, Nose, Throat Exam: normal ENT inspection, TMs normal, pharynx normal, moist mucous membranes Neck Exam: normal inspection, non-tender, supple, full range of motion Respiratory Exam: diminished breath sounds, crackles/rales, rhonchi, No respiratory distress Cardiovascular Exam: irregular, capillary refill 2-3 sec Gastrointestinal/Abdomen Exam: soft, normal bowel sounds, No tenderness, No mass Back Exam: normal inspection, normal range of motion, No CVA tenderness, No vertebral tenderness Extremity Exam: normal inspection, normal range of motion, pelvis stable Neurologic Exam: alert, oriented x 3, cooperative, normal mood/affect, nml cerebellar function, nml station & gait, sensation nml, No motor deficits Skin Exam: normal color, warm, dry, No rash Lymphatic Exam: No adenopathy SpO2: 95 - Course Nursing assessment & vital signs reviewed: Yes EKG Interpreted by Me: Non-specific ST Changes, Other (paced rhythm) - Radiology Exams Chest X-ray Interpretation: Reviewed by me Foot X-ray Interpretation: Interpreted by me, Reviewed by me, Displaced Fracture (2nd, 3rd, 4th metatarsals) Ankle X-ray Interpretation: Interpreted by me, Reviewed by me, No Fracture - CT Exams Head CT Interpretation: Tele-radiologist Report Ordered Tests: Active Orders 24 hr Category Date Time Status Lead Painter STAT Care 09/17/23 11:40 Active EKG-ER Only STAT Care 09/17/23 11:38 Active Oxygen-ED Only Nasal Cannula 2 lpm Care 09/17/23 11:38 Active ANKLE (3 VIEWS) Stat Exams 09/17/23 11:38 Taken CHEST 1 VIEW (PORTABLE) Stat Exams 09/17/23 11:39 Taken FOOT (MINIMUM 3 VIEWS) Stat Exams 09/17/23 11:38 Taken HEAD WITHOUT CONTRAST [CT] Stat Exams 09/17/23 11:40 Completed CBC W DIFF Stat Lab 09/17/23 11:53 Completed CMP Stat Lab 09/17/23 11:53 Completed D-DIMER QUANTITATIVE Stat Lab 09/17/23 11:53 Completed MAGNESIUM Stat Lab 09/17/23 11:53 Completed NT PRO BNPII Stat Lab 09/17/23 11:53 Completed TROPONIN Q4H Lab 09/17/23 11:53 Completed TROPONIN Q4H Lab 09/17/23 15:45 Ordered TROPONIN Q4H Lab 09/17/23 19:45 Ordered UA W/RFX UR CULTURE Stat Lab 09/17/23 11:39 Ordered Medication Summary Discontinued Medications Generic Name Dose Route Start Last Admin Trade Name Freq PRN Reason Stop Dose Admin Enoxaparin Sodium 80 mg 09/17/23 12:44 09/17/23 12:59 Enoxaparin Sodium 80 Mg/0.8 Ml Syringe SQ 09/17/23 12:45 80 mg STAT ONE Administration Enoxaparin Sodium Confirm 09/17/23 12:58 Enoxaparin Sodium 80 Mg/0.8 Ml Syringe Administered 09/17/23 12:59 Dose 80 mg SQ .STK-MED ONE Sodium Chloride 1,000 mls @ 999 mls/hr 09/17/23 11:38 09/17/23 13:32 Sodium Chloride 0.9% 1000 Ml IV 09/17/23 12:38 Infused .Q1H1M STA Infusion Sodium Chloride Confirm 09/17/23 11:47 Sodium Chloride 0.9% 1000 Ml Administered 09/17/23 11:48 Dose 1,000 mls @ ud .ROUTE .STK-MED ONE Lab/Rad Data: Laboratory Result Diagrams 09/17/23 11:53 09/17/23 11:53 Laboratory Results 09/17/23 09/17/23 09/17/23 Range/Units 11:53 11:53 11:53 WBC (4.0-10.5) x10^3/uL RBC (4.1-5.6) x10^6/uL Hgb (12.5-18.0) g/dL Hct (42-50) % MCV (78-100) fL MCH (26-32) pg MCHC (32-36) g/dL RDW (11.5-14.0) % Plt Count (150-450) x10^3/uL MPV (7.5-11.0) fL Gran % (36.0-66.0) % Immature Gran % (Auto) (0.00-0.4) % Nucleat RBC Rel Count (0.00-0.1) % Eos # (Auto) (0-0.5) x10^3/uL Immature Gran # (Auto) (0.00-0.03) x10^3u/L Absolute Lymphs (auto) (1.0-4.6) x10^3/uL Absolute Monos (auto) (0.0-1.3) x10^3/uL Absolute Nucleated RBC (0.00-0.01) x10^3u/L Lymphocytes % (24.0-44.0) % Monocytes % (0.0-12.0) % Eosinophils % (0.00-5.0) % Basophils % (0.0-0.4) % Absolute Granulocytes (1.4-6.9) x10^3/uL Basophils # (0-0.4) x10^3/uL D-Dimer 10.71 H* (0.0-0.50) mg/L Sodium 131 L (137-145) mmol/L Potassium 4.9 (3.5-5.1) mmol/L Chloride 98 (98-107) mmol/L Carbon Dioxide 22 (22-30) mmol/L Anion Gap 15.1 H (5-15) MEQ/L BUN 22 H (9-20) mg/dL Creatinine 1.50 H (0.66-1.25) mg/dL Estimated GFR 45.6 ML/MIN Glucose 166 H (74-106) mg/dL Calcium 9.0 (8.4-10.2) mg/dL Magnesium 1.9 (1.6-2.3) mg/dL Total Bilirubin 1.70 H (0.2-1.3) mg/dL AST 32 (17-59) U/L ALT 19 (0-50) U/L Alkaline Phosphatase 133 H (38-126) U/L Troponin I < 0.012 (0.000-0.034) ng/mL NT-Pro-B Natriuret Pep 525 (<300) pg/mL Serum Total Protein 7.1 (6.3-8.2) g/dL Albumin 4.1 (3.5-5.0) g/dL 09/17/23 Range/Units 11:53 WBC 9.5 (4.0-10.5) x10^3/uL RBC 3.37 L (4.1-5.6) x10^6/uL Hgb 11.7 L (12.5-18.0) g/dL Hct 35.1 L (42-50) % MCV 104.2 H (78-100) fL MCH 34.7 H (26-32) pg MCHC 33.3 (32-36) g/dL RDW 13.6 (11.5-14.0) % Plt Count 176 (150-450) x10^3/uL MPV 9.2 (7.5-11.0) fL Gran % 75.4 H (36.0-66.0) % Immature Gran % (Auto) 0.3 (0.00-0.4) % Nucleat RBC Rel Count 0.0 (0.00-0.1) % Eos # (Auto) 0.02 (0-0.5) x10^3/uL Immature Gran # (Auto) 0.03 (0.00-0.03) x10^3u/L Absolute Lymphs (auto) 1.38 (1.0-4.6) x10^3/uL Absolute Monos (auto) 0.90 (0.0-1.3) x10^3/uL Absolute Nucleated RBC 0.00 (0.00-0.01) x10^3u/L Lymphocytes % 14.5 L (24.0-44.0) % Monocytes % 9.4 (0.0-12.0) % Eosinophils % 0.2 (0.00-5.0) % Basophils % 0.2 (0.0-0.4) % Absolute Granulocytes 7.18 H (1.4-6.9) x10^3/uL Basophils # 0.02 (0-0.4) x10^3/uL D-Dimer (0.0-0.50) mg/L Sodium (137-145) mmol/L Potassium (3.5-5.1) mmol/L Chloride (98-107) mmol/L Carbon Dioxide (22-30) mmol/L Anion Gap (5-15) MEQ/L BUN (9-20) mg/dL Creatinine (0.66-1.25) mg/dL Estimated GFR ML/MIN Glucose (74-106) mg/dL Calcium (8.4-10.2) mg/dL Magnesium (1.6-2.3) mg/dL Total Bilirubin (0.2-1.3) mg/dL AST (17-59) U/L ALT (0-50) U/L Alkaline Phosphatase (38-126) U/L Troponin I (0.000-0.034) ng/mL NT-Pro-B Natriuret Pep (<300) pg/mL Serum Total Protein (6.3-8.2) g/dL Albumin (3.5-5.0) g/dL - Progress Progress: unchanged, pain not gone completely Will see patient in: hospital (full admit) Counseled pt/family regarding: lab results, diagnosis, need for follow-up, rad results - Departure Referrals: JAYDA GONSALEZ MD [Primary Care Provider] - Follow up/PCP as directed
[2023-09-17 12:22] LABS: ALBUMIN 4.1 g/dL (3.5-5.0); ANION GAP 15.1 MEQ/L (5-15); BILIRUBIN,TOTAL 1.7 mg/dL (0.2-1.3); Creatinine 1 1.5 mg/dL (0.66-1.25); EST GLOMERULAR FILTRATION RATE 45.6 ML/MIN; MAGNESIUM 1.9 mg/dL (1.6-2.3); Potassium 4.9 mmol/L (3.5-5.1); Total Protein 7.1 g/dL (6.3-8.2)
[2023-09-17] MEDS ORDERED: ENOXAPARIN SODIUM SQ ONE ×2 (12:44→12:58)
--- NOTE | 2023-09-17 13:11 | XRAY ---
CLINICAL HISTORY:fall, dizziness COMPARISON:none TECHNIQUE:Axial non-contrast CT scan of the brain was performed from the skull base to the high parietal region. FINDINGS: No evidence of well-established infarct or hemorrhage was noted. No evidence of fracture was noted. There are multiple ill-defined tiny [id number] areas noted in the subcortical and deep white matter bilaterally, suggestive of microvascular ischemic changes. The ventricular system, cortical sulci, and basal cisterns are prominent and consistent with senile changes. Age-related calcification of falx, bilateral choroid plexus, and pineal gland noted. The rest of the visualized brain parenchyma shows a normal appearance. Rodriguez-white matter differentiation is maintained. No midline shifts or deformity. Normal size and configuration of the cerebral ventricles. Normal CT appearance of the posterior fossa structures namely the cerebellar hemispheres, brainstem and cerebellar peduncles. The IACs are unremarkable. The cerebello-pontine angles are clear. The pituitary gland, the pineal gland, the optic chiasm is unremarkable. The osseous structures in the skull base are unremarkable. No definite calvarium fractures. The scanned paranasal sinuses are clear. IMPRESSION: No evidence of hemorrhage or well-established infarct. No evidence of fracture. Mild microvascular ischemic changes and senile brain changes. For acute infarction, MRI with DWI and ADC images is the modality of choice. Electronically Signed by: Ruma Downing MD. (09/17/2023 13:07:09 EST)
--- NOTE | 2023-09-17 15:13 | PCM.HP ---
History of Present Illness - Chief Complaint Chief Complaint: elevated d dimer. fracture right foot, renal failure Date: 09/17/23 History of Present Illness: is a 83 year old male with past medical history of congestive cardiomyopathy, pacemaker, pacemaker placement 2-3 years ago, orthostatic hypotension, chronic renal insufficiency, peripheral neuropathy, COPD, GERD, Pre-diabetic, prostate problems, and frequent falls at home. He lives by himself at home. He reports having his pacemaker interrogated and there isn't any problem 3 months ago by cardiology. According to the daughter patient is getting weaker and weaker and gets shaky when he tries to stand up. Yesterday night patient fell and injured his right ankle and foot and it is bruised and swollen. Pain radiates up to his knee. Patient is not able to walk or stand on right leg due to pain. He also hit his head and right arm with the fall. He has mutiple abrasions. Patient states that when he tries to stand up he gets extremely dizzy and shaky and then he falls. Orthostatics are positive in ER. Daughter states that he has been confused. CT shows no acute findings. D-dimer is elevated will evaluate with CT with PE protocol. Will consult podiatry fractures of right foot. Pain currently 4/10. He is refusing any pain medication. Right leg is elevated with ice applied. XR's are pending results. He denies CP, SOB, ABd. pain, N/V/D. He reports a good appetite and no recent illness. Material Combiner is Dr. Smiley. PCP [facility] - Review of Systems Constitutional: Weakness, No Fever, No Chills Eyes: No Symptoms Ears, Nose, & Throat: No Symptoms Respiratory: No Cough, No Short Of Breath Cardiac: No Chest Pain, No Edema, No Syncope Abdominal/Gastrointestinal: No Abdominal Pain, No Nausea, No Vomiting, No Diarrhea Genitourinary Symptoms: No Dysuria Musculoskeletal: Fall, Injury, Joint Pain, Joint Swelling (R ankle and right foot pain with radiation to right ankle), No Back Pain, No Neck Pain Skin: Skin Lesions (Abrasion top of head, Rght elbow, right wrist), No Rash Neurological: Dizziness, No Focal Weakness, No Sensory Changes Psychological: No Symptoms, Memory Loss (Confusion per daughter) Endocrine: No Symptoms Hematologic/Lymphatic: No Symptoms Immunological/Allergic: No Symptoms Medications & Allergies Home Medications: Home Medication List Aspirin [Aspirin EC] 81 mg PO DAILY 01/04/14 [History Confirmed 09/17/23] Pravastatin Sodium [Pravachol] 80 mg PO HS 01/04/14 [History Confirmed 09/17/23] Tamsulosin HCl 0.4 mg [Flomax 0.4 MG] 0.4 mg PO BID 11/25/18 [History Confirmed 09/17/23] Duloxetine HCl [Cymbalta] 60 mg PO DAILY 09/17/23 [History Confirmed 09/17/23] Empagliflozin [Jardiance] 10 mg PO DAILY 09/17/23 [History Confirmed 09/17/23] Famotidine 20 mg [Pepcid 20 MG] 40 mg PO DAILY 09/17/23 [History Confirmed 09/17/23] Finasteride 5 mg [Proscar 5 MG] 5 mg PO DAILY 09/17/23 [History Confirmed 09/17/23] Metoprolol Tartrate 12.5 mg PO BID 09/17/23 [History Confirmed 09/17/23] Midodrine HCl 2.5 mg PO TID 09/17/23 [History Confirmed 09/17/23] Allergies/Adverse Reactions: Allergies Allergy/AdvReac Type Severity Reaction Status Date / Time No Known Drug Allergies Allergy Verified 09/17/23 11:46 - Past Medical History Past Medical History: Yes Neurological History: Peripheral Neuropathy ENT History: No Pertinent History Cardiac History: Other Respiratory History: COPD Endocrine Medical History: Other Musculoskelatal History: Osteoarthritis GI Medical History: GERD, Other History: No Pertinent History Pyscho-Social History: No Pertinent History Male Reproductive Disorders: Prostate Problems Comment: pre-diabetic, kidney infection. L knee meniscus test in 1974. - Past Surgical History Past Surgical History: Yes Neuro Surgical History: No Pertinent History Cardiac History: Cardiac Catheterization, Cardiac Stent Respiratory Surgery: No Pertinent History GI Surgical History: No Pertinent History Genitourinary Surgical Hx: No Pertinent History Musculskeletal Surgical Hx: Orthopedic Surgery Male Surgical History: No Pertinent History Other Surgical History: left knee surgery - Social History Smoking Status: Former smoker How long have you smoked: 20years Exposure to second hand smoke: No Alcohol: Daily Drug Use: none - Physical Exam Vital Signs: Vital Signs - 24 hr Temp Pulse BP BP Pulse Ox 09/17/23 14:07 138/72 09/17/23 14:06 92 L 09/17/23 13:35 95 09/17/23 12:00 133/63 09/17/23 11:22 97.9 F 82 103/84 95 General Appearance: no apparent distress, alert Neurologic Exam: alert, oriented x 3, cooperative, normal mood/affect, nml cerebellar function, nml station & gait, sensation nml, No motor deficits Eye Exam: PERRL/EOMI, eyes nml inspection Ears, Nose, Throat Exam: normal ENT inspection, TMs normal, pharynx normal, moist mucous membranes Neck Exam: normal inspection, non-tender, supple, full range of motion Respiratory Exam: normal breath sounds, lungs clear, No respiratory distress Cardiovascular Exam: regular rate/rhythm, normal heart sounds, normal peripheral pulses Gastrointestinal/Abdomen Exam: soft, normal bowel sounds, No tenderness, No mass Back Exam: normal inspection, normal range of motion, No CVA tenderness, No vertebral tenderness Extremity Exam: normal inspection, normal range of motion, pelvis stable, swelling (right ankle- wrapped) Skin Exam: normal color, warm, dry, abrasion (Top of head, Right elbow, right wrist- covered with bandages.), No rash Lymphatic Exam: No adenopathy Results - Labs Lab/Micro Results: Lab Results-Last 24 Hours 09/17/23 09/17/23 09/17/23 Range/Units 11:53 11:53 11:53 WBC 9.5 (4.0-10.5) x10^3/uL RBC 3.37 L (4.1-5.6) x10^6/uL Hgb 11.7 L (12.5-18.0) g/dL Hct 35.1 L (42-50) % MCV 104.2 H (78-100) fL MCH 34.7 H (26-32) pg MCHC 33.3 (32-36) g/dL RDW 13.6 (11.5-14.0) % Plt Count 176 (150-450) x10^3/uL MPV 9.2 (7.5-11.0) fL Gran % 75.4 H (36.0-66.0) % Immature Gran % (Auto) 0.3 (0.00-0.4) % Nucleat RBC Rel Count 0.0 (0.00-0.1) % Eos # (Auto) 0.02 (0-0.5) x10^3/uL Immature Gran # (Auto) 0.03 (0.00-0.03) x10^3u/L Absolute Lymphs (auto) 1.38 (1.0-4.6) x10^3/uL Absolute Monos (auto) 0.90 (0.0-1.3) x10^3/uL Absolute Nucleated RBC 0.00 (0.00-0.01) x10^3u/L Lymphocytes % 14.5 L (24.0-44.0) % Monocytes % 9.4 (0.0-12.0) % Eosinophils % 0.2 (0.00-5.0) % Basophils % 0.2 (0.0-0.4) % Absolute Granulocytes 7.18 H (1.4-6.9) x10^3/uL Basophils # 0.02 (0-0.4) x10^3/uL D-Dimer 10.71 H* (0.0-0.50) mg/L Sodium 131 L (137-145) mmol/L Potassium 4.9 (3.5-5.1) mmol/L Chloride 98 (98-107) mmol/L Carbon Dioxide 22 (22-30) mmol/L Anion Gap 15.1 H (5-15) MEQ/L BUN 22 H (9-20) mg/dL Creatinine 1.50 H (0.66-1.25) mg/dL Estimated GFR 45.6 ML/MIN Glucose 166 H (74-106) mg/dL Calcium 9.0 (8.4-10.2) mg/dL Magnesium 1.9 (1.6-2.3) mg/dL Total Bilirubin 1.70 H (0.2-1.3) mg/dL AST 32 (17-59) U/L ALT 19 (0-50) U/L Alkaline Phosphatase 133 H (38-126) U/L Troponin I (0.000-0.034) ng/mL NT-Pro-B Natriuret Pep 525 (<300) pg/mL Serum Total Protein 7.1 (6.3-8.2) g/dL Albumin 4.1 (3.5-5.0) g/dL 09/17/23 Range/Units 11:53 WBC (4.0-10.5) x10^3/uL RBC (4.1-5.6) x10^6/uL Hgb (12.5-18.0) g/dL Hct (42-50) % MCV (78-100) fL MCH (26-32) pg MCHC (32-36) g/dL RDW (11.5-14.0) % Plt Count (150-450) x10^3/uL MPV (7.5-11.0) fL Gran % (36.0-66.0) % Immature Gran % (Auto) (0.00-0.4) % Nucleat RBC Rel Count (0.00-0.1) % Eos # (Auto) (0-0.5) x10^3/uL Immature Gran # (Auto) (0.00-0.03) x10^3u/L Absolute Lymphs (auto) (1.0-4.6) x10^3/uL Absolute Monos (auto) (0.0-1.3) x10^3/uL Absolute Nucleated RBC (0.00-0.01) x10^3u/L Lymphocytes % (24.0-44.0) % Monocytes % (0.0-12.0) % Eosinophils % (0.00-5.0) % Basophils % (0.0-0.4) % Absolute Granulocytes (1.4-6.9) x10^3/uL Basophils # (0-0.4) x10^3/uL D-Dimer (0.0-0.50) mg/L Sodium (137-145) mmol/L Potassium (3.5-5.1) mmol/L Chloride (98-107) mmol/L Carbon Dioxide (22-30) mmol/L Anion Gap (5-15) MEQ/L BUN (9-20) mg/dL Creatinine (0.66-1.25) mg/dL Estimated GFR ML/MIN Glucose (74-106) mg/dL Calcium (8.4-10.2) mg/dL Magnesium (1.6-2.3) mg/dL Total Bilirubin (0.2-1.3) mg/dL AST (17-59) U/L ALT (0-50) U/L Alkaline Phosphatase (38-126) U/L Troponin I < 0.012 (0.000-0.034) ng/mL NT-Pro-B Natriuret Pep (<300) pg/mL Serum Total Protein (6.3-8.2) g/dL Albumin (3.5-5.0) g/dL - Radiology Impressions Radiology Exams & Impressions: Radiology Procedures Category Date Time Status ANKLE (3 VIEWS) Stat Exams 09/17/23 11:38 Taken CHEST 1 VIEW (PORTABLE) Stat Exams 09/17/23 11:39 Taken FOOT (MINIMUM 3 VIEWS) Stat Exams 09/17/23 11:38 Taken HEAD WITHOUT CONTRAST [CT] Stat Exams 09/17/23 11:40 Completed Assessment/Plan (1) Syncope Current Visit: Yes Status: Acute Assessment & Plan: - Pacemaker interrogated last 3 months ago by cardiolgy - Consider cardiology consult- not available until Tuesday - PT/OT - + orthosttic hypotension - gentle hydration - CT head negative for acute process Code(s): R55 - SYNCOPE AND COLLAPSE (2) Elevated d-dimer Current Visit: No Status: Acute Assessment & Plan: - D-dimer 10.71 - CT chest w/o contrast due to OLIVIA - Unable to do VQ scan at this facility - Start therapeutic lovenox - Echo and Venous duplex of BLLE Tuesday- unable to do on the weekends - Cardiology consult Tuesday Code(s): R79.89 - OTHER SPECIFIED ABNORMAL FINDINGS OF BLOOD CHEMISTRY (3) Acute on chronic renal failure Current Visit: Yes Status: Acute Assessment & Plan: - Hold midodrine, jardiance, flomax - IVF bolus gave in ER - gentle hydration - Follows Nephrology Dr. Smiley Code(s): N17.9 - ACUTE KIDNEY FAILURE, UNSPECIFIED; N18.9 - CHRONIC KIDNEY DISEASE, UNSPECIFIED (4) Right foot pain Current Visit: Yes Status: Acute Assessment & Plan: - RICE techniques - Right foot and ankle XR pending - podiatry consult - Tylenol for pain- refusing narcotic pain meds Code(s): M79.671 - PAIN IN RIGHT FOOT (5) Right ankle pain Current Visit: Yes Status: Acute Assessment & Plan: - XR pending - RICE techniques - Most likely will need OP rehab at d/c Code(s): M25.571 - PAIN IN RIGHT ANKLE AND JOINTS OF RIGHT FOOT (6) GERD (gastroesophageal reflux disease) Current Visit: Yes Status: Acute Assessment & Plan: - continue pepcid Code(s): K21.9 - GASTRO-ESOPHAGEAL REFLUX DISEASE WITHOUT ESOPHAGITIS (7) Hyponatremia Current Visit: Yes Status: Acute Assessment & Plan: - Na+ 131 - Fluid bolus gave in ER - gentle hydration Code(s): E87.1 - HYPO-OSMOLALITY AND HYPONATREMIA (8) Elevated glucose Current Visit: Yes Status: Acute Assessment & Plan: - pt reports pre- DM - Stopped jardiance - 06/01/23 -A1C 5.79 - Accucheck AC/HS - Low dose humalog s/s Code(s): R73.09 - OTHER ABNORMAL GLUCOSE (9) HTN (hypertension) Current Visit: Yes Status: Acute Assessment & Plan: - Continue beta nando - IV hydralizine PRN VTE: lovenox PPI: pepcid Next of Kin: Daughter- Nirmal Negron [phone] D/C plan: 2-3 days Code status: full Code(s): I10 - ESSENTIAL (PRIMARY) HYPERTENSION
[2023-09-17] MEDS ORDERED: HUMALOG SQ PRN (16:02)
[2023-09-17] MEDS ORDERED: APRESOLINE 20 MG/ML INJ IV PRN (16:13)
[2023-09-17] MEDS ORDERED: Sodium Chloride 0.9% 1000 ML 1,000 ML IV SCH (16:15)
[2023-09-17 16:40] LABS: Appearance Clear (Clear); Bacteria None Seen /HPF (None Seen); Bilirubin Negative (Negative); Blood Negative (Negative); Epithelial Cells None Seen /HPF (None Seen); Glucose, Urine >=1000 mg/dL (Negative); Hyaline Casts NONE SEEN /LPF (0-2); Ketones Trace (Negative); Leukocyte Esterase Negative (Negative); Nitrite Negative (Negative); Protein,Urine Dip Trace (Negative); RBC 0-2 /HPF (0-5); WBC 0-2 /HPF (0-5)
[2023-09-17 16:45] LABS: ADD URINE CULTURE? NO (NO)
[2023-09-17] MEDS: BACIGUENT 30 GM TP SCH (17:07)
[2023-09-17] MEDS: TYLENOL 325 MG PO PRN (17:07)
--- NOTE | 2023-09-17 17:11 | XRAY ---
CLINICAL HISTORY:syncope, elevated D-Dimer COMPARISON:None. TECHNIQUE:Contiguous 3.[address] images of the chest were acquired without administration of intravenous contrast. Coronal and sagittal reconstructions were obtained. FINDINGS: Bilateral reticular patterns noted in the upper lung lobes and the superior segments of both lower lung lobes, predominantly subpleural. These may represent fibrosis or an interstitial lung disease Bilateral small emphysematous bullae are noted. Right basal atelectatic bands. A cardiac dual lead pacemaker is noted. The scanned pulmonary parenchyma shows no definite consolidation/collapse. No free or encysted pleural effusion. Heart size is normal and there is no pericardial effusion. No pathologically enlarged mediastinal, hilar, or axillary lymph node was identified. Patent tracheobronchial tree. There is no definite mass lesion in the chest wall. The rest of the scanned upper abdomen shows bilateral renal atrophic changes with perirenal fat stranding. Small hiatus hernia. Degenerative changes seen in the visualized spine, no lytic/sclerotic lesion seen in the visualized bones to suggest the bony metastasis. IMPRESSION: 1. In the status of elevated D dimer, Pulmonary angiographic assessment is advised to rule out thromboembolic event if clinically warranted. 2. Bilateral reticular patterns, predominantly subpleural. These may represent fibrosis or an interstitial lung disease. Clinical correlation suggested. 3. Bilateral small emphysematous bullae are noted. 4. Right basal atelectatic bands. 5. Small hiatus hernia. 6. Degenerative changes seen in the visualized spine. Electronically Signed by: Ruma Downing MD. (09/17/2023 17:07:53 EST)
--- NOTE | 2023-09-17 21:05 | XRAY ---
Indication: Dizziness. Status post fall. Comparison: November 25, 2018 Portable chest inflated with stable right mid-upper lung subsegmental atelectasis/scarring. No focal infiltrate, consolidation, or large effusion. Heart not enlarged with new left dual-lead pacemaker. Bony thorax intact with osteopenia and mild degenerative changes. Impression: Nonacute chest with chronic features.
--- NOTE | 2023-09-17 21:05 | XRAY ---
Indication: Pain following fall. Comparison: None 3 view right ankle demonstrates nondisplaced transverse fracture proximal shaft 2nd metatarsal and minimally displaced transverse fracture proximal shaft 3rd metatarsal. Elsewhere osteopenia, tiny heel spurs, lateral soft tissue swelling, and moderate scattered vascular calcifications.
--- NOTE | 2023-09-17 21:07 | XRAY ---
Indication: Pain, swelling, and bruising following fall. Comparison: None 3 nonweightbearing views right foot demonstrates nondisplaced transverse fractures proximal shafts 2nd-4th metatarsals with soft tissue swelling. Elsewhere osteopenia, tiny heel spurs, and moderate scattered vascular calcifications.
[2023-09-17] MEDS ORDERED: NON-FORMULARY ITEM (Pravastatin Sodium [Pravachol] 20 MG Tablet) PO SCH (22:00)
[2023-09-17] MEDS: ENOXAPARIN SODIUM SQ SCH (22:59)
[2023-09-17] MEDS: Lopressor 25MG Tab PO SCH (23:00)
[2023-09-17] MEDS: ZOCOR 20MG PO SCH (23:00)
[2023-09-18 06:01] LABS: Hematocrit 30.1 % (42-50); Hemoglobin 9.9 g/dL (12.5-18.0); Mean Cell Volume 103.1 fL (78-100); Mean Corpuscular Hemoglobin 33.9 pg (26-32); Mean Corpuscular Hgb Concent. 32.9 g/dL (32-36); Mean Platelet Volume 9.6 fL (7.5-11.0); Platelet Count 152 x10^3/uL (150-450); Red Blood Count 2.92 x10^6/uL (4.1-5.6); Red Cell Distribution Width 13.8 % (11.5-14.0); White Blood Count 6.5 x10^3/uL (4.0-10.5)
[2023-09-18 06:19] LABS: ALBUMIN 3.3 g/dL (3.5-5.0); ANION GAP 9.7 MEQ/L (5-15); BILIRUBIN,TOTAL 1.8 mg/dL (0.2-1.3); Calcium 8.5 mg/dL (8.4-10.2); Creatinine 1 1.28 mg/dL (0.66-1.25); EST GLOMERULAR FILTRATION RATE 55.2 ML/MIN; Potassium 4.2 mmol/L (3.5-5.1); Total Protein 6.1 g/dL (6.3-8.2)
[2023-09-18] MEDS: BACIGUENT 30 GM TP SCH (09:46)
[2023-09-18] MEDS: ECOTRIN 81 MG PO SCH (09:46)
[2023-09-18] MEDS: Cymbalta 30 MG Capsule PO SCH (09:46)
[2023-09-18] MEDS: Lopressor 25MG Tab PO SCH ×2 (09:47→22:42)
[2023-09-18] MEDS: Pepcid 20 MG PO SCH (09:48)
[2023-09-18] MEDS: ENOXAPARIN SODIUM SQ SCH ×2 (09:50→22:44)
[2023-09-18] MEDS: Proscar 5 MG PO SCH (09:50)
[2023-09-18] MEDS ORDERED: ENOXAPARIN SODIUM SQ SCH (10:00)
[2023-09-18] MEDS ORDERED: NON-FORMULARY ITEM (Duloxetine Hcl [Cymbalta] 60 MG Capsule.Dr) PO SCH (10:00)
[2023-09-18] MEDS ORDERED: BACIGUENT PACKET TP SCH (10:00)
--- NOTE | 2023-09-18 12:54 | PCM.NOTE ---
Date and Time: 09/18/23 1248 Subjective Assessment: 09/17/23 is a 83 year old male with past medical history of congestive cardiomyopathy, pacemaker, pacemaker placement 2-3 years ago, orthostatic hypotension, chronic renal insufficiency, peripheral neuropathy, COPD, GERD, Pre-diabetic, prostate problems, and frequent falls at home. He lives by himself at home. He reports having his pacemaker interrogated and there isn't any problem 3 months ago by cardiology. According to the daughter patient is getting weaker and weaker and gets shaky when he tries to stand up. Yesterday night patient fell and injured his right ankle and foot and it is bruised and swollen. Pain radiates up to his knee. Patient is not able to walk or stand on right leg due to pain. He also hit his head and right arm with the fall. He has mutiple abrasions. Patient states that when he tries to stand up he gets extremely dizzy and shaky and then he falls. Orthostatics are positive in ER. Daughter states that he has been confused. CT shows no acute findings. D-dimer is elevated will evaluate with CT with PE protocol. Will consult podiatry fractures of right foot. Pain currently 4/10. He is refusing any pain medication. Right leg is elevated with ice applied. XR's are pending results. He denies CP, SOB, ABd. pain, N/V/D. He reports a good appetite and no recent illness. Web Operations Manager is Dr. Smiley. PCP [facility] 09/18/23 Pt resting in bed with R foot elevated on a pillow. Ice packs in place. He reports no pain at this time. Reviewed XR's and labs with pt. He will need a CT with PE protocol tomorrow if OLIVIA improved. Labs have improved since yesterday. US of carotids, BLLE VD, and Echo scheduled for tomorrow. Podiatry consult for tomorrow as well. He has not gotten up yet. Orthostats ordered. PT eval in AM. He has no sxs laying down. He denies any further concerns at this time. - Review of Systems Constitutional: No Fever, No Chills Eyes: No Symptoms Ears, Nose, & Throat: No Symptoms Respiratory: No Cough, No Short Of Breath Cardiac: No Chest Pain, No Edema, No Syncope Abdominal/Gastrointestinal: No Abdominal Pain, No Nausea, No Vomiting, No Diarrhea Genitourinary Symptoms: No Dysuria Musculoskeletal: Other (R ankle and right foot pain with radiation to right ankle), No Back Pain, No Neck Pain Skin: Other (Abrasion top of head, Rght elbow, right wrist), No Rash Neurological: Other (Confusion per daughter), No Dizziness, No Focal Weakness, No Sensory Changes Psychological: No Symptoms Endocrine: No Symptoms Hematologic/Lymphatic: No Symptoms Immunological/Allergic: No Symptoms Objective Exam General Appearance: no apparent distress, alert Neurologic Exam: alert, oriented x 3, cooperative, normal mood/affect, nml cerebellar function, sensation nml, No motor deficits Skin Exam: normal color, warm, dry, abrasion, other (Top of head, Right elbow, right wrist- covered with bandages.) Wound Assessment: Skin/Wound Assessment Wound/Incision Assessment Start: 09/17/23 15:18 Text: Status: Active Freq: Q6H Protocol: Document 09/18/23 09:00 (Rec: 09/18/23 09:16 [id number]) Wound/Incision Assessment Right Arm Wound Type Abrasion Wound Stage Non Pressure Wound Dressing Status Dry & Intact Drainage Amount None Comment dressing CDI Wound Photo Photo Taken Yes Eye Exam: PERRL, EOMI, eyes nml inspection Ears, Nose, Throat Exam: normal ENT inspection, pharynx normal, moist mucous membranes Neck Exam: normal inspection, non-tender, supple, full range of motion Respiratory Exam: normal breath sounds, lungs clear, No respiratory distress Cardiovascular Exam: regular rate/rhythm, normal heart sounds Gastrointestinal/Abdomen Exam: soft, No tenderness, No mass Extremity Exam: normal inspection, normal range of motion, swelling (ight ankle- wrapped)), tenderness (RLE) Back Exam: normal inspection, normal range of motion, No CVA tenderness, No vertebral tenderness Male Genitalia Exam: deferred Rectal Exam: deferred OBJECTIVE DATA Vital Signs: Vital Signs - 24 hr Temp Pulse Resp BP BP Pulse Ox 09/18/23 11:00 97.3 F 69 16 145/69 97 09/18/23 07:00 97.6 F 90 16 141/67 96 09/18/23 03:00 97.8 F 90 18 133/66 95 09/17/23 23:00 97.7 F 71 18 137/65 92 L 09/17/23 19:00 98.3 F 74 18 151/67 93 L 09/17/23 15:36 97.5 F 74 18 197/77 92 L 09/17/23 14:44 97.5 F 74 18 197/77 92 L 09/17/23 14:07 138/72 09/17/23 14:06 92 L 09/17/23 13:35 95 Pain Assessment - Last Documented Pain Intensity 3 Pain Scale Used 0-10 Pain Scale Intake and Output: Intake & Output 09/16/23 09/17/23 09/18/23 09/19/23 11:59 11:59 11:59 11:59 Intake Total 2206 Output Total 1150 Balance 1056 Weight 74.843 kg 78.3 kg Lab Results: Lab Results-Last 24 Hours 09/17/23 09/17/23 09/17/23 Range/Units 11:30 15:45 16:00 WBC (4.0-10.5) x10^3/uL RBC (4.1-5.6) x10^6/uL Hgb (12.5-18.0) g/dL Hct (42-50) % MCV (78-100) fL MCH (26-32) pg MCHC (32-36) g/dL RDW (11.5-14.0) % Plt Count (150-450) x10^3/uL MPV (7.5-11.0) fL Sodium (137-145) mmol/L Potassium (3.5-5.1) mmol/L Chloride (98-107) mmol/L Carbon Dioxide (22-30) mmol/L Anion Gap (5-15) MEQ/L BUN (9-20) mg/dL Creatinine (0.66-1.25) mg/dL Estimated GFR ML/MIN Glucose (74-106) mg/dL POC Glucometer (74 to 106) mg/dL Calcium (8.4-10.2) mg/dL Total Bilirubin (0.2-1.3) mg/dL AST (17-59) U/L ALT (0-50) U/L Alkaline Phosphatase (38-126) U/L Troponin I < 0.012 (0.000-0.034) ng/mL Serum Total Protein (6.3-8.2) g/dL Albumin (3.5-5.0) g/dL Prealbumin 24.06 (17.6-36.0) mg/dL Urine Color Yellow (Yellow) Urine Appearance Clear (Clear) Urine pH 6.0 (4.6-8.0) Ur Specific [place] 1.020 (1.005-1.030) Urine Protein Trace A (Negative) Urine Glucose (UA) >=1000 A (Negative) mg/dL Urine Ketones Trace A (Negative) Urine Blood Negative (Negative) Urine Nitrite Negative (Negative) Urine Bilirubin Negative (Negative) Urine Urobilinogen 1.0 A (0.2) mg/dL Ur Leukocyte Esterase Negative (Negative) U Hyaline Cast (Auto) NONE SEEN (0-2) /LPF Urine Microscopic RBC 0-2 (0-5) /HPF Urine Microscopic WBC 0-2 (0-5) /HPF Ur Epithelial Cells None Seen (None Seen) /HPF Urine Bacteria None Seen (None Seen) /HPF Urine Culture Reflexed NO (NO) 09/17/23 09/17/23 09/17/23 Range/Units 16:29 19:45 20:50 WBC (4.0-10.5) x10^3/uL RBC (4.1-5.6) x10^6/uL Hgb (12.5-18.0) g/dL Hct (42-50) % MCV (78-100) fL MCH (26-32) pg MCHC (32-36) g/dL RDW (11.5-14.0) % Plt Count (150-450) x10^3/uL MPV (7.5-11.0) fL Sodium (137-145) mmol/L Potassium (3.5-5.1) mmol/L Chloride (98-107) mmol/L Carbon Dioxide (22-30) mmol/L Anion Gap (5-15) MEQ/L BUN (9-20) mg/dL Creatinine (0.66-1.25) mg/dL Estimated GFR ML/MIN Glucose (74-106) mg/dL POC Glucometer 111 H 125 H (74 to 106) mg/dL Calcium (8.4-10.2) mg/dL Total Bilirubin (0.2-1.3) mg/dL AST (17-59) U/L ALT (0-50) U/L Alkaline Phosphatase (38-126) U/L Troponin I < 0.012 (0.000-0.034) ng/mL Serum Total Protein (6.3-8.2) g/dL Albumin (3.5-5.0) g/dL Prealbumin (17.6-36.0) mg/dL Urine Color (Yellow) Urine Appearance (Clear) Urine pH (4.6-8.0) Ur Specific [place] (1.005-1.030) Urine Protein (Negative) Urine Glucose (UA) (Negative) mg/dL Urine Ketones (Negative) Urine Blood (Negative) Urine Nitrite (Negative) Urine Bilirubin (Negative) Urine Urobilinogen (0.2) mg/dL Ur Leukocyte Esterase (Negative) U Hyaline Cast (Auto) (0-2) /LPF Urine Microscopic RBC (0-5) /HPF Urine Microscopic WBC (0-5) /HPF Ur Epithelial Cells (None Seen) /HPF Urine Bacteria (None Seen) /HPF Urine Culture Reflexed (NO) 09/18/23 09/18/23 09/18/23 Range/Units 05:45 05:45 07:17 WBC 6.5 (4.0-10.5) x10^3/uL RBC 2.92 L (4.1-5.6) x10^6/uL Hgb 9.9 L (12.5-18.0) g/dL Hct 30.1 L (42-50) % MCV 103.1 H (78-100) fL MCH 33.9 H (26-32) pg MCHC 32.9 (32-36) g/dL RDW 13.8 (11.5-14.0) % Plt Count 152 (150-450) x10^3/uL MPV 9.6 (7.5-11.0) fL Sodium 130 L (137-145) mmol/L Potassium 4.2 (3.5-5.1) mmol/L Chloride 102 (98-107) mmol/L Carbon Dioxide 22 (22-30) mmol/L Anion Gap 9.7 (5-15) MEQ/L BUN 23 H (9-20) mg/dL Creatinine 1.28 H (0.66-1.25) mg/dL Estimated GFR 55.2 ML/MIN Glucose 109 H (74-106) mg/dL POC Glucometer 97 (74 to 106) mg/dL Calcium 8.5 (8.4-10.2) mg/dL Total Bilirubin 1.80 H (0.2-1.3) mg/dL AST 26 (17-59) U/L ALT 14 (0-50) U/L Alkaline Phosphatase 118 (38-126) U/L Troponin I (0.000-0.034) ng/mL Serum Total Protein 6.1 L (6.3-8.2) g/dL Albumin 3.3 L (3.5-5.0) g/dL Prealbumin (17.6-36.0) mg/dL Urine Color (Yellow) Urine Appearance (Clear) Urine pH (4.6-8.0) Ur Specific [place] (1.005-1.030) Urine Protein (Negative) Urine Glucose (UA) (Negative) mg/dL Urine Ketones (Negative) Urine Blood (Negative) Urine Nitrite (Negative) Urine Bilirubin (Negative) Urine Urobilinogen (0.2) mg/dL Ur Leukocyte Esterase (Negative) U Hyaline Cast (Auto) (0-2) /LPF Urine Microscopic RBC (0-5) /HPF Urine Microscopic WBC (0-5) /HPF Ur Epithelial Cells (None Seen) /HPF Urine Bacteria (None Seen) /HPF Urine Culture Reflexed (NO) 09/18/23 Range/Units 11:21 WBC (4.0-10.5) x10^3/uL RBC (4.1-5.6) x10^6/uL Hgb (12.5-18.0) g/dL Hct (42-50) % MCV (78-100) fL MCH (26-32) pg MCHC (32-36) g/dL RDW (11.5-14.0) % Plt Count (150-450) x10^3/uL MPV (7.5-11.0) fL Sodium (137-145) mmol/L Potassium (3.5-5.1) mmol/L Chloride (98-107) mmol/L Carbon Dioxide (22-30) mmol/L Anion Gap (5-15) MEQ/L BUN (9-20) mg/dL Creatinine (0.66-1.25) mg/dL Estimated GFR ML/MIN Glucose (74-106) mg/dL POC Glucometer 106 (74 to 106) mg/dL Calcium (8.4-10.2) mg/dL Total Bilirubin (0.2-1.3) mg/dL AST (17-59) U/L ALT (0-50) U/L Alkaline Phosphatase (38-126) U/L Troponin I (0.000-0.034) ng/mL Serum Total Protein (6.3-8.2) g/dL Albumin (3.5-5.0) g/dL Prealbumin (17.6-36.0) mg/dL Urine Color (Yellow) Urine Appearance (Clear) Urine pH (4.6-8.0) Ur Specific [place] (1.005-1.030) Urine Protein (Negative) Urine Glucose (UA) (Negative) mg/dL Urine Ketones (Negative) Urine Blood (Negative) Urine Nitrite (Negative) Urine Bilirubin (Negative) Urine Urobilinogen (0.2) mg/dL Ur Leukocyte Esterase (Negative) U Hyaline Cast (Auto) (0-2) /LPF Urine Microscopic RBC (0-5) /HPF Urine Microscopic WBC (0-5) /HPF Ur Epithelial Cells (None Seen) /HPF Urine Bacteria (None Seen) /HPF Urine Culture Reflexed (NO) Radiology Exams: Radiology Procedures Category Date Time Status ANKLE (3 VIEWS) Stat Exams 09/17/23 11:38 Completed CAROTID BILATERAL [US] Routine Exams 09/19/23 11:55 Ordered CHEST 1 VIEW (PORTABLE) Stat Exams 09/17/23 11:39 Completed CHEST WITHOUT CONTRAST [CT] Urgent Exams 09/17/23 15:44 Completed ECHO W/2D AND DOPPLER [US] Routine Exams 09/19/23 11:55 Ordered FOOT (MINIMUM 3 VIEWS) Stat Exams 09/17/23 11:38 Completed HEAD WITHOUT CONTRAST [CT] Stat Exams 09/17/23 11:40 Completed Assessment/Plan (1) Syncope Current Visit: Yes Status: Acute Code(s): R55 - SYNCOPE AND COLLAPSE (2) Elevated d-dimer Current Visit: No Status: Acute Code(s): R79.89 - OTHER SPECIFIED ABNORMAL FINDINGS OF BLOOD CHEMISTRY (3) Acute on chronic renal failure Current Visit: Yes Status: Acute Code(s): N17.9 - ACUTE KIDNEY FAILURE, UNSPECIFIED; N18.9 - CHRONIC KIDNEY DISEASE, UNSPECIFIED (4) Right foot pain Current Visit: Yes Status: Acute Code(s): M79.671 - PAIN IN RIGHT FOOT (5) Right ankle pain Current Visit: Yes Status: Acute Code(s): M25.571 - PAIN IN RIGHT ANKLE AND JOINTS OF RIGHT FOOT (6) GERD (gastroesophageal reflux disease) Current Visit: Yes Status: Acute Code(s): K21.9 - GASTRO-ESOPHAGEAL REFLUX DISEASE WITHOUT ESOPHAGITIS (7) Hyponatremia Current Visit: Yes Status: Acute Code(s): E87.1 - HYPO-OSMOLALITY AND HYPONATREMIA (8) Elevated glucose Current Visit: Yes Status: Acute Code(s): R73.09 - OTHER ABNORMAL GLUCOSE (9) HTN (hypertension) Current Visit: Yes Status: Acute Assessment & Plan: (1) Syncope Current Visit: Yes Status: Acute Assessment & Plan: - Pacemaker interrogated last 3 months ago by cardiolgy - Consider cardiology consult- not available until Tuesday - PT/OT - + orthosttic hypotension - gentle hydration - CT head negative for acute process 09/18 - orthostats- pending - PT eval tomorrow - Echo tomorrow Code(s): R55 - SYNCOPE AND COLLAPSE (2) Elevated d-dimer Current Visit: No Status: Acute Assessment & Plan: - D-dimer 10.71 - unable to do CT chest w/o contrast due to OLIVIA- If improves order tuesday. - Unable to do VQ scan at this facility over the weekend - Start therapeutic lovenox - Echo, US of carotids, and Venous duplex of BLLE Tuesday- unable to do on the weekends - Cardiology consult Tuesday- will need ordered Code(s): R79.89 - OTHER SPECIFIED ABNORMAL FINDINGS OF BLOOD CHEMISTRY (3) Acute on chronic renal failure Current Visit: Yes Status: Acute Assessment & Plan: - Hold midodrine, jardiance, flomax - IVF bolus gave in ER - gentle hydration - Follows Nephrology Dr. Smiley 09/18 - IVF stopped - Labs improving- trend Code(s): N17.9 - ACUTE KIDNEY FAILURE, UNSPECIFIED; N18.9 - CHRONIC KIDNEY DISEASE, UNSPECIFIED (4) Right foot pain Current Visit: Yes Status: Acute Assessment & Plan: - RICE techniques - Right foot and ankle XR pending - podiatry consult- [place] - Tylenol for pain- refusing narcotic pain meds Code(s): M79.671 - PAIN IN RIGHT FOOT (5) Right ankle pain Current Visit: Yes Status: Acute Assessment & Plan: - XR pending - RICE techniques - Most likely will need OP rehab at d/c- discuss with CM Tuesday Code(s): M25.571 - PAIN IN RIGHT ANKLE AND JOINTS OF RIGHT FOOT (6) GERD (gastroesophageal reflux disease) Current Visit: Yes Status: Acute Assessment & Plan: - continue pepcid Code(s): K21.9 - GASTRO-ESOPHAGEAL REFLUX DISEASE WITHOUT ESOPHAGITIS (7) Hyponatremia Current Visit: Yes Status: Acute Assessment & Plan: - Na+ 131 - Fluid bolus gave in ER - gentle hydration 09/18 - Na+ 130- mild - trend - stopped IV fluids d/t heart hx - trend Code(s): E87.1 - HYPO-OSMOLALITY AND HYPONATREMIA (8) Elevated glucose Current Visit: Yes Status: Acute Assessment & Plan: - pt reports pre- DM - Stopped jardiance - 06/01/23 -A1C 5.79 - Accucheck AC/HS - Low dose humalog s/s Code(s): R73.09 - OTHER ABNORMAL GLUCOSE (9) HTN (hypertension) Current Visit: Yes Status: Acute Assessment & Plan: - Continue beta nando - IV hydralizine PRN - BP stable VTE: lovenox PPI: pepcid Next of Kin: Daughter- Nirmal Negron [phone] D/C plan: 2-3 days Code status: full Code(s): I10 - ESSENTIAL (PRIMARY) HYPERTENSION
[2023-09-18] MEDS: TYLENOL 325 MG PO PRN (18:07)
[2023-09-18] MEDS: ZOCOR 20MG PO SCH (22:43)
[2023-09-19 04:49] LABS: Hematocrit 29.3 % (42-50); Hemoglobin 9.9 g/dL (12.5-18.0); Mean Cell Volume 103.2 fL (78-100); Mean Corpuscular Hemoglobin 34.9 pg (26-32); Mean Corpuscular Hgb Concent. 33.8 g/dL (32-36); Mean Platelet Volume 9.6 fL (7.5-11.0); Platelet Count 141 x10^3/uL (150-450); Red Blood Count 2.84 x10^6/uL (4.1-5.6); Red Cell Distribution Width 13.5 % (11.5-14.0); White Blood Count 5.9 x10^3/uL (4.0-10.5)
--- NOTE | 2023-09-19 05:05 | PCM.NOTE ---
Date and Time: 09/19/23 0502 Subjective Assessment: is a 83 year old male with past medical history of congestive cardiomyopathy, pacemaker, pacemaker placement 2-3 years ago, orthostatic hypotension, chronic renal 103insufficiency, peripheral neuropathy, COPD, GERD, Pre-diabetic, prostate problems, and frequent falls at home who presented to ED 09/17/23 after a ground level fall rendering him unable to stand or ambulate due to the pain in his right ankle. Patient had also hit his head and right arm in the fall. Patient also endorsed dizziness and shakiness prior to falling. Daughter states patient Enhas been more confused lately. CT head with no acute findings. Ddimer elevated. CT chest demonstrates fibrosis vs interstitial lung disease, bilateral small emphysematous bullae, right basal atelctatic bnads, a small hiatus hernia, as well as degenerative changes of the spine. CXR negative. Right foot and ankle xrays with nondisplaced transverse fractures proximal shafts 2nd-4th metatarsals with soft tissue swelling. Elsewhere osteopenia, tiny heel spurs, and moderate scattered vascular calcifications. Podiatry has been consulted. Therapeutic lovenox started as VQ is unable to be obtained and patient with OLIVIA, unable to get CT w/contrast. Cardiology consulted. ECHO and venous duplex pending. Pacemarker interrogated 3 months ago. 09/19/23: - Review of Systems Constitutional: No Symptoms Eyes: No Symptoms Ears, Nose, & Throat: No Symptoms Respiratory: No Symptoms Cardiac: No Symptoms Abdominal/Gastrointestinal: No Symptoms Genitourinary Symptoms: No Symptoms Musculoskeletal: Joint Pain Skin: No Symptoms Neurological: No Symptoms Psychological: No Symptoms Endocrine: No Symptoms Hematologic/Lymphatic: No Symptoms Objective Exam General Appearance: no apparent distress Neurologic Exam: alert, oriented x 3, cooperative Skin Exam: normal color Wound Assessment: Skin/Wound Assessment Wound/Incision Assessment Start: 09/17/23 15:18 Text: Status: Active Freq: Q6H Protocol: Document 09/19/23 03:00 LB (Rec: 09/19/23 04:16 LB [id number]) Wound/Incision Assessment Right Arm Wound Assessment Shift Assessment Wound Type Abrasion Wound Stage Non Pressure Wound Dressing Status Dry & Intact Drainage Amount None Drainage Odor None/Absent Primary Dressing Gauze Pads Comment dressing CDI Wound Photo Photo Taken Yes Eye Exam: PERRL Ears, Nose, Throat Exam: normal ENT inspection, moist mucous membranes Neck Exam: normal inspection Respiratory Exam: normal breath sounds, lungs clear Cardiovascular Exam: regular rate/rhythm, normal heart sounds Gastrointestinal/Abdomen Exam: soft, normal bowel sounds Extremity Exam: limited range of motion (RLE, in walking boot) Back Exam: normal inspection Male Genitalia Exam: deferred Rectal Exam: deferred OBJECTIVE DATA Vital Signs: Vital Signs - 24 hr Temp Pulse Resp BP Pulse Ox 09/19/23 03:00 98 F 71 16 125/58 94 L 09/18/23 23:00 97.6 F 67 18 146/67 93 L 09/18/23 19:00 98.2 F 73 18 148/66 94 L 09/18/23 15:00 97.3 F 96 H 16 116/62 97 09/18/23 11:00 97.3 F 69 16 145/69 97 09/18/23 07:00 97.6 F 90 16 141/67 96 Pain Assessment - Last Documented Pain Intensity 0 Pain Scale Used 0-10 Pain Scale Intake and Output: Intake & Output 09/16/23 09/17/23 09/18/23 09/19/23 11:59 11:59 11:59 11:59 Intake Total 2206 1160 Output Total 1150 1925 Balance 1056 -765 Weight 74.843 kg 78.3 kg Lab Results: Lab Results-Last 24 Hours 09/18/23 09/18/23 09/18/23 Range/Units 05:45 05:45 07:17 WBC 6.5 (4.0-10.5) x10^3/uL RBC 2.92 L (4.1-5.6) x10^6/uL Hgb 9.9 L (12.5-18.0) g/dL Hct 30.1 L (42-50) % MCV 103.1 H (78-100) fL MCH 33.9 H (26-32) pg MCHC 32.9 (32-36) g/dL RDW 13.8 (11.5-14.0) % Plt Count 152 (150-450) x10^3/uL MPV 9.6 (7.5-11.0) fL Sodium 130 L (137-145) mmol/L Potassium 4.2 (3.5-5.1) mmol/L Chloride 102 (98-107) mmol/L Carbon Dioxide 22 (22-30) mmol/L Anion Gap 9.7 (5-15) MEQ/L BUN 23 H (9-20) mg/dL Creatinine 1.28 H (0.66-1.25) mg/dL Estimated GFR 55.2 ML/MIN Glucose 109 H (74-106) mg/dL POC Glucometer 97 (74 to 106) mg/dL Calcium 8.5 (8.4-10.2) mg/dL Total Bilirubin 1.80 H (0.2-1.3) mg/dL AST 26 (17-59) U/L ALT 14 (0-50) U/L Alkaline Phosphatase 118 (38-126) U/L Serum Total Protein 6.1 L (6.3-8.2) g/dL Albumin 3.3 L (3.5-5.0) g/dL 09/18/23 09/18/23 09/18/23 Range/Units 11:21 16:39 20:24 WBC (4.0-10.5) x10^3/uL RBC (4.1-5.6) x10^6/uL Hgb (12.5-18.0) g/dL Hct (42-50) % MCV (78-100) fL MCH (26-32) pg MCHC (32-36) g/dL RDW (11.5-14.0) % Plt Count (150-450) x10^3/uL MPV (7.5-11.0) fL Sodium (137-145) mmol/L Potassium (3.5-5.1) mmol/L Chloride (98-107) mmol/L Carbon Dioxide (22-30) mmol/L Anion Gap (5-15) MEQ/L BUN (9-20) mg/dL Creatinine (0.66-1.25) mg/dL Estimated GFR ML/MIN Glucose (74-106) mg/dL POC Glucometer 106 106 124 H (74 to 106) mg/dL Calcium (8.4-10.2) mg/dL Total Bilirubin (0.2-1.3) mg/dL AST (17-59) U/L ALT (0-50) U/L Alkaline Phosphatase (38-126) U/L Serum Total Protein (6.3-8.2) g/dL Albumin (3.5-5.0) g/dL 09/19/23 Range/Units 04:46 WBC 5.9 (4.0-10.5) x10^3/uL RBC 2.84 L (4.1-5.6) x10^6/uL Hgb 9.9 L (12.5-18.0) g/dL Hct 29.3 L (42-50) % MCV 103.2 H (78-100) fL MCH 34.9 H (26-32) pg MCHC 33.8 (32-36) g/dL RDW 13.5 (11.5-14.0) % Plt Count 141 L (150-450) x10^3/uL MPV 9.6 (7.5-11.0) fL Sodium (137-145) mmol/L Potassium (3.5-5.1) mmol/L Chloride (98-107) mmol/L Carbon Dioxide (22-30) mmol/L Anion Gap (5-15) MEQ/L BUN (9-20) mg/dL Creatinine (0.66-1.25) mg/dL Estimated GFR ML/MIN Glucose (74-106) mg/dL POC Glucometer (74 to 106) mg/dL Calcium (8.4-10.2) mg/dL Total Bilirubin (0.2-1.3) mg/dL AST (17-59) U/L ALT (0-50) U/L Alkaline Phosphatase (38-126) U/L Serum Total Protein (6.3-8.2) g/dL Albumin (3.5-5.0) g/dL Radiology Exams: Radiology Procedures Category Date Time Status ANKLE (3 VIEWS) Stat Exams 09/17/23 11:38 Completed CAROTID BILATERAL [US] Routine Exams 09/19/23 11:55 Ordered CHEST 1 VIEW (PORTABLE) Stat Exams 09/17/23 11:39 Completed CHEST WITHOUT CONTRAST [CT] Urgent Exams 09/17/23 15:44 Completed ECHO W/2D AND DOPPLER [US] Routine Exams 09/19/23 11:55 Ordered FOOT (MINIMUM 3 VIEWS) Stat Exams 09/17/23 11:38 Completed HEAD WITHOUT CONTRAST [CT] Stat Exams 09/17/23 11:40 Completed VENOUS BILATERAL EXTREMITY [US] Routine Exams 09/19/23 12:52 Ordered Assessment/Plan (1) Syncope Current Visit: Yes Status: Acute Assessment & Plan: - Pacemaker interrogated last 3 months ago by cardiolgy - Consider cardiology consult- not available until Tuesday - PT/OT - + orthosttic hypotension - gentle hydration - CT head negative for acute process 09/18 - orthostats- pending - PT eval tomorrow - Echo tomorrow 09/19 -Echo pending -Orthostat vitals positive -Call out to Dr. Yancey, may need pacemaker interrogated again Code(s): R55 - SYNCOPE AND COLLAPSE (2) Elevated d-dimer Current Visit: No Status: Acute Assessment & Plan: - D-dimer 10.71 - unable to do CT chest w/o contrast due to OLIVIA- If improves order tuesday. - Unable to do VQ scan at this facility over the weekend - Start therapeutic lovenox - Echo, US of carotids, and Venous duplex of BLLE Tuesday- unable to do on the s - Cardiology consult Tuesday- will need ordered 09/19: -CT ordered for today -Lovenox continued -Pt recently had US of carotids, we will cancel this study -Venous duplex negative for DVT Code(s): R79.89 - OTHER SPECIFIED ABNORMAL FINDINGS OF BLOOD CHEMISTRY (3) Acute on chronic renal failure Current Visit: Yes Status: Acute Assessment & Plan: - Hold midodrine, jardiance, flomax - IVF bolus gave in ER - gentle hydration - Follows Nephrology Dr. Smiley 09/18 - IVF stopped - Labs improving- trend 09/19: -Creat now normal, will continue to monitor as pt is having CT today Code(s): N17.9 - ACUTE KIDNEY FAILURE, UNSPECIFIED; N18.9 - CHRONIC KIDNEY DISEASE, UNSPECIFIED (4) Right foot pain Current Visit: Yes Status: Acute Assessment & Plan: - RICE techniques - Right foot and ankle XR pending - podiatry consult- Tuesday - Tylenol for pain- refusing narcotic pain meds 09/19: -Podiatry consulted, recommend to remain NWB and rehab for about 6-8 weeks for which pt is agreeable. CM working on placement. No surgical intervention Code(s): M79.671 - PAIN IN RIGHT FOOT (5) Right ankle pain Current Visit: Yes Status: Acute Assessment & Plan: - XR pending - RICE techniques - Most likely will need OP rehab at d/c- discuss with CM Wednesday 09/19: -See right foot pain Code(s): M25.571 - PAIN IN RIGHT ANKLE AND JOINTS OF RIGHT FOOT (6) GERD (gastroesophageal reflux disease) Current Visit: Yes Status: Acute Assessment & Plan: - continue pepcid Code(s): K21.9 - GASTRO-ESOPHAGEAL REFLUX DISEASE WITHOUT ESOPHAGITIS (7) Hyponatremia Current Visit: Yes Status: Acute Assessment & Plan: - Na+ 131 - Fluid bolus gave in ER - gentle hydration 09/18 - Na+ 130- mild - trend - stopped IV fluids d/t heart hx - trend 09/19: -Improving, now at 129, will continue to monitor Code(s): E87.1 - HYPO-OSMOLALITY AND HYPONATREMIA (8) Elevated glucose Current Visit: Yes Status: Acute Assessment & Plan: - pt reports pre- DM - Stopped jardiance - 06/01/23 -A1C 5.79 - Accucheck AC/HS - Low dose humalog s/s Code(s): R73.09 - OTHER ABNORMAL GLUCOSE (9) HTN (hypertension) Current Visit: Yes Status: Acute Assessment & Plan: - Continue beta nando - IV hydralizine PRN - BP stable VTE: lovenox PPI: pepcid Next of Kin: Daughter- Nirmal Negron [phone] D/C plan: 2-3 days Code status: full Code(s): R55 - SYNCOPE AND COLLAPSE (2) Acute on chronic renal failure Current Visit: Yes Status: Acute Code(s): N17.9 - ACUTE KIDNEY FAILURE, UNSPECIFIED; N18.9 - CHRONIC KIDNEY DISEASE, UNSPECIFIED (3) Elevated glucose Current Visit: Yes Status: Acute Code(s): R73.09 - OTHER ABNORMAL GLUCOSE (4) GERD (gastroesophageal reflux disease) Current Visit: Yes Status: Acute Code(s): K21.9 - GASTRO-ESOPHAGEAL REFLUX DISEASE WITHOUT ESOPHAGITIS (5) HTN (hypertension) Current Visit: Yes Status: Acute Code(s): I10 - ESSENTIAL (PRIMARY) H YPERTENSION (6) Hyponatremia Current Visit: Yes Status: Acute Code(s): E87.1 - HYPO-OSMOLALITY AND HYPON ATREMIA (7) Right ankle pain Current Visit: Yes Status: Acute Code(s): M25.571 - PAIN IN RIGHT ANKLE AND JOINTS OF RIGHT FOOT (8) Right foot pain Current Visit: Yes Status: Acute Code(s): M79.671 - PAIN IN RIGHT FOOT (9) Elevated d-dimer Current Visit: No Status: Acute Code(s): R79.89 - OTHER SPECIFIED ABNORMAL FINDINGS OF BLOOD CHEMISTRY
[2023-09-19 05:15] LABS: ALBUMIN 3.2 g/dL (3.5-5.0); ANION GAP 10.4 MEQ/L (5-15); BILIRUBIN,TOTAL 1.2 mg/dL (0.2-1.3); Calcium 8.5 mg/dL (8.4-10.2); Creatinine 1 1.13 mg/dL (0.66-1.25); EST GLOMERULAR FILTRATION RATE 64.1 ML/MIN; Potassium 3.9 mmol/L (3.5-5.1); Total Protein 6.2 g/dL (6.3-8.2)
--- NOTE | 2023-09-19 08:05 | PCM.CONS ---
Podiatry HPI - Consult Date of Consultation Date: 09/19/23 Reason for Consult: Multiple metatarsal fracture. Ankle injury RLE Consulting Provider: FARA JERONIMO DPM - [facility] History of Present Illness: Patient is a very pleasant 83 year old male known to my service for neuropathy with significant past medical history of congestive cardiomyopathy s/p pacemaker orthostatic hypotension chronic renal insufficiency has been getting frequent falls at home. He lives by himself at home. According to the daughter patient is getting weaker and weaker and gets shaky when he tried to stand up.who presents with admission following a syncopal episode which resulted his right foot and ankle and the pain goes up to his knee. Patient states that he has been passing out frequently lately and reports having his pacemaker interrogated and there isn't any problem, orthostatics are positive, pulses normal in foot, daughter states that he has been confused, no difficulty with breathing. Today seen at bedside resting comfortably however in pain to the right lower extremity. Medications & Allergies Home Medications: Home Medication List Aspirin [Aspirin EC] 81 mg PO DAILY 01/04/14 [History Confirmed 09/17/23] Pravastatin Sodium [Pravachol] 80 mg PO HS 01/04/14 [History Confirmed 09/17/23] Tamsulosin HCl 0.4 mg [Flomax 0.4 MG] 0.4 mg PO BID 11/25/18 [History Confirmed 09/17/23] Duloxetine HCl [Cymbalta] 60 mg PO DAILY 09/17/23 [History Confirmed 09/17/23] Empagliflozin [Jardiance] 10 mg PO DAILY 09/17/23 [History Confirmed 09/17/23] Famotidine 20 mg [Pepcid 20 MG] 40 mg PO DAILY 09/17/23 [History Confirmed 09/17/23] Finasteride 5 mg [Proscar 5 MG] 5 mg PO DAILY 09/17/23 [History Confirmed 09/17/23] Metoprolol Tartrate 12.5 mg PO BID 09/17/23 [History Confirmed 09/17/23] Midodrine HCl 2.5 mg PO TID 09/17/23 [History Confirmed 09/17/23] Allergies/Adverse Reactions: Allergies Allergy/AdvReac Type Severity Reaction Status Date / Time No Known Drug Allergies Allergy Verified 09/17/23 11:46 - Past Medical History Past Medical History: Yes Neurological History: Peripheral Neuropathy ENT History: No Pertinent History Cardiac History: Other Respiratory History: COPD Endocrine Medical History: Other Musculoskelatal History: Osteoarthritis GI Medical History: GERD, Other History: No Pertinent History Pyscho-Social History: No Pertinent History Male Reproductive Disorders: Prostate Problems Comment: pre-diabetic, kidney infection. L knee meniscus test in 1974. - Past Surgical History Past Surgical History: Yes Neuro Surgical History: No Pertinent History Cardiac History: Cardiac Catheterization, Cardiac Stent Respiratory Surgery: No Pertinent History GI Surgical History: No Pertinent History Genitourinary Surgical Hx: No Pertinent History Musculskeletal Surgical Hx: Orthopedic Surgery Male Surgical History: No Pertinent History Other Surgical History: left knee surgery - Social History Smoking Status: Former smoker How long have you smoked: 20years Exposure to second hand smoke: No Alcohol: Daily Drug Use: none Physical Exam - Vascular Peripheral Pulses: Posterior tibialis: 2+, Dorsalis-Pedis: 2+ Capillary Refill Time: < 3 seconds Hair Growth: Symmetrical and Bilateral Varicosities: Negtive Edema: Pitting Edema Degree: 3+ Skin: Supple, not atrophic Skin Temperature: Warm to touch - Narrative Narrative Physical Exam: Pain elicited just distal to the fibular head suspicious for fibular fracture Pain elicited over the dorsal aspect of the midfoot- Proven fractures to metaphyseal portions of metatarsal 2-4 Results - Labs Lab/Micro Results: Lab Results-Last 24 Hours 09/18/23 09/18/23 09/18/23 Range/Units 11:21 16:39 20:24 WBC (4.0-10.5) x10^3/uL RBC (4.1-5.6) x10^6/uL Hgb (12.5-18.0) g/dL Hct (42-50) % MCV (78-100) fL MCH (26-32) pg MCHC (32-36) g/dL RDW (11.5-14.0) % Plt Count (150-450) x10^3/uL MPV (7.5-11.0) fL Sodium (137-145) mmol/L Potassium (3.5-5.1) mmol/L Chloride (98-107) mmol/L Carbon Dioxide (22-30) mmol/L Anion Gap (5-15) MEQ/L BUN (9-20) mg/dL Creatinine (0.66-1.25) mg/dL Estimated GFR ML/MIN Glucose (74-106) mg/dL POC Glucometer 106 106 124 H (74 to 106) mg/dL Calcium (8.4-10.2) mg/dL Total Bilirubin (0.2-1.3) mg/dL AST (17-59) U/L ALT (0-50) U/L Alkaline Phosphatase (38-126) U/L Serum Total Protein (6.3-8.2) g/dL Albumin (3.5-5.0) g/dL 09/19/23 09/19/23 09/19/23 Range/Units 04:46 04:46 06:27 WBC 5.9 (4.0-10.5) x10^3/uL RBC 2.84 L (4.1-5.6) x10^6/uL Hgb 9.9 L (12.5-18.0) g/dL Hct 29.3 L (42-50) % MCV 103.2 H (78-100) fL MCH 34.9 H (26-32) pg MCHC 33.8 (32-36) g/dL RDW 13.5 (11.5-14.0) % Plt Count 141 L (150-450) x10^3/uL MPV 9.6 (7.5-11.0) fL Sodium 129 L (137-145) mmol/L Potassium 3.9 (3.5-5.1) mmol/L Chloride 102 (98-107) mmol/L Carbon Dioxide 21 L (22-30) mmol/L Anion Gap 10.4 (5-15) MEQ/L BUN 22 H (9-20) mg/dL Creatinine 1.13 (0.66-1.25) mg/dL Estimated GFR 64.1 ML/MIN Glucose 104 (74-106) mg/dL POC Glucometer 104 (74 to 106) mg/dL Calcium 8.5 (8.4-10.2) mg/dL Total Bilirubin 1.20 (0.2-1.3) mg/dL AST 30 (17-59) U/L ALT 14 (0-50) U/L Alkaline Phosphatase 105 (38-126) U/L Serum Total Protein 6.2 L (6.3-8.2) g/dL Albumin 3.2 L (3.5-5.0) g/dL Accuchecks Date 09/19/23 Date 09/18/23 Date 09/18/23 Date 09/18/23 Time 07:06 Time 20:25 Time 16:47 Time 11:35 - Radiology Impressions Radiology Exams & Impressions: Radiology Procedures Category Date Time Status ANKLE (3 VIEWS) Stat Exams 09/17/23 11:38 Completed CAROTID BILATERAL [US] Routine Exams 09/19/23 11:55 Ordered CHEST 1 VIEW (PORTABLE) Stat Exams 09/17/23 11:39 Completed CHEST WITHOUT CONTRAST [CT] Urgent Exams 09/17/23 15:44 Completed ECHO W/2D AND DOPPLER [US] Routine Exams 09/19/23 11:55 Ordered FOOT (MINIMUM 3 VIEWS) Stat Exams 09/17/23 11:38 Completed HEAD WITHOUT CONTRAST [CT] Stat Exams 09/17/23 11:40 Completed LOWER LEG Stat Exams 09/19/23 07:54 Ordered VENOUS BILATERAL EXTREMITY [US] Routine Exams 09/19/23 12:52 Ordered Assessment/Plan (1) Closed fracture of second metatarsal bone of right foot Current Visit: Yes Status: Acute Assessment & Plan: multiple midfoot fractures non-displaced with palpable pulses to proximal metaphyses of the metatarsal 2, 3, 4 No surgical management recommended at this time Patient would benefit from remaining non weight bearing during this period of time secondary to concern for potential high fibular fracture and more importan tly syncopal episodes. Discussion held with patient in regards to rehab stay during this period of time 6-8 weeks as he lives alone and cares for himself. Patient has suffered multiple falls in the past 2-3 years. Patient seemingly amenable at this time. Code(s): S92.321A - DISP FX OF SECOND METATARSAL BONE, RIGHT FOOT, INIT (2) Closed fracture of third metatarsal bone of right foot Current Visit: Yes Status: Acute Code(s): S92.331A - DISP FX OF THIRD METATARSAL BONE, RIGHT FOOT, INIT (3) Closed fracture of fourth metatarsal of right foot Current Visit: Yes Status: Acute Code(s): S92.341A - DISP FX OF FOURTH METATARSAL BONE, RIGHT FOOT, INIT (4) Fracture of proximal end of fibula Current Visit: Yes Status: Acute Assessment & Plan: suspected- Pending High tib fib XR to rule out but given nature of fall suspect pronation external rotation injury. Code(s): S82.839A - OTH FRACTURE OF UPPER AND LOWER END OF UNSP FIBULA, INIT (5) Right ankle pain Current Visit: Yes Status: Acute Code(s): M25.571 - PAIN IN RIGHT ANKLE AND JOINTS OF RIGHT FOOT (6) Right foot pain Current Visit: Yes Status: Acute Code(s): M79.671 - PAIN IN RIGHT FOOT (7) Syncope Current Visit: Yes Status: Acute Assessment & Plan: Given patients current episodes of syncope and orthostatic hypotension recommend remaining non weight bearing Patient recently started duloxetine 60 mg without complication(4-6 months ago) but historically (over last 3 years) has intermittent episodes of orthostatic hypotension and is being managed for high blood pressure. At this time, recommend taper off and see if symptoms resolve, if no other obvious causative issues identified. Code(s): R55 - SYNCOPE AND COLLAPSE (8) Fall Current Visit: No Status: Acute Code(s): W19.XXXA - UNSPECIFIED FALL, INITIAL ENCOUNTER
--- NOTE | 2023-09-19 08:35 | XRAY ---
Indication: Follow-up fracture. Comparison: None 2 view right femur demonstrates osteopenia, patella/posterior calcaneal spurring, mild lateral ankle soft tissue swelling, and extensive scattered vascular calcifications. No other bony, articular, or soft tissue abnormalities.
[2023-09-19] MEDS: ECOTRIN 81 MG PO SCH (09:52)
[2023-09-19] MEDS: Lopressor 25MG Tab PO SCH ×2 (09:52→21:22)
[2023-09-19] MEDS: Pepcid 20 MG PO SCH (09:53)
[2023-09-19] MEDS: Cymbalta 30 MG Capsule PO SCH (09:53)
[2023-09-19] MEDS: Proscar 5 MG PO SCH (09:54)
[2023-09-19] MEDS: BACIGUENT 30 GM TP SCH (09:54)
[2023-09-19] MEDS: ENOXAPARIN SODIUM SQ SCH ×2 (12:31→23:03)
--- NOTE | 2023-09-19 12:37 | XRAY ---
Indication: Elevated d-dimer. Two-dimensional sonogram and color Doppler imaging of the major venous vessels of the left and right leg performed. Comparison: None No thrombus seen in the examined deep venous vessels of the left and right leg including greater saphenous vein. Veins demonstrate normal compressibility. Venous waveforms are normal with and without augmentation. Impression: Left and right legs negative for DVT.
--- NOTE | 2023-09-19 14:22 | XRAY ---
Indication: Short of breath. Elevated d-dimer. Status post fall 2 days ago. Same-day left and right leg sonogram negative for DVT. Multiple contiguous axial images obtained through the chest using 80 cc Isovue 370 contrast and PE protocol. Comparison: CT chest without contrast September 17, 2023 Good opacification of the pulmonary arteries to include the lobar and segmental branches. No pulmonary embolus. Heart not enlarged with scattered coronary calcifications and left dual-lead pacemaker. Aorta mildly arteriosclerotic without aneurysm/dissection. No pathologic mediastinal/hilar lymphadenopathy. Lungs again demonstrates mild pulmonary emphysema with scattered peripheral fibrosis/scarring greatest in both lower lungs. No suspicious pulmonary mass/nodule, infiltrate, effusion, or pneumothorax. Bony thorax intact again with osteopenia, mild/moderate degenerative changes throughout the spine, and bilateral gynecomastia. Limited upper abdomen again demonstrates mild fatty liver. Impression: 1. Negative pulmonary embolus. No new/acute cardiopulmonary abnormalities. 2. Again chronic findings including pulmonary emphysema, pulmonary fibrosis/scarring, arteriosclerotic disease, chronic bony findings, fatty liver, and bilateral gynecomastia.
[2023-09-19] MEDS ORDERED: MIDODRINE HCL 2.5 MG PO SCH (15:00)
[2023-09-19] MEDS: PROAMATINE PO SCH ×2 (16:02→21:22)
[2023-09-19] MEDS: TYLENOL 325 MG PO PRN (17:16)
[2023-09-19] MEDS: ZOCOR 20MG PO SCH (21:22)
--- NOTE | 2023-09-20 05:05 | PCM.NOTE ---
Date and Time: 09/20/23 0504 Subjective Assessment: is a 83 year old male with past medical history of congestive cardiomyopathy, pacemaker, pacemaker placement 2-3 years ago, orthostatic hypotension, chronic renal insufficiency, peripheral neuropathy, COPD, GERD, Pre-diabetic, prostate problems, and frequent falls at home who presented to ED 09/17/23 after a ground level fall rendering him unable to stand or ambulate due to the pain in his right ankle. Patient had also hit his head and right arm in the fall. Patient also endorsed dizziness and shakiness prior to falling. Daughter states patient Enhas been more confused lately. CT head with no acute findings. Ddimer elevated. CT chest demonstrates fibrosis vs interstitial lung disease, bilateral small emphysematous bullae, right basal atelctatic bnads, a small hiatus hernia, as well as degenerative changes of the spine. CXR negative. Right foot and ankle xrays with nondisplaced transverse fractures proximal shafts 2nd-4th metatarsals with soft tissue swelling. Elsewhere osteopenia, tiny heel spurs, and moderate scattered vascular calcifications. Podiatry has been consulted with recs for non-surgical intervention RICE/NWB, patient agreeable to rehab. Patient follows with Dr. Yancey, will reach out regarding ddimer/orthostatic hypotension/ pacemaker was recently interrogated 3 months a go. CTA negative for PE. Midodrine restarted. Placement pending. 09/20/23: Met with patient bedside. Pain has improved. No overnight events or new c/o. Patient is working with PT while IP and will d/c to rehab. Spoke with Dr. Yancey (cardiology) regarding patient's orthostasis, plan for increasing midodrine to 10mg tid and follow up in 1-2 weeks. - Review of Systems Constitutional: No Symptoms Eyes: No Symptoms Ears, Nose, & Throat: No Symptoms Respiratory: No Symptoms Cardiac: No Symptoms Abdominal/Gastrointestinal: No Symptoms Genitourinary Symptoms: No Symptoms Musculoskeletal: Joint Pain Skin: No Symptoms Neurological: Dizziness Psychological: No Symptoms Endocrine: No Symptoms Hematologic/Lymphatic: No Symptoms Objective Exam General Appearance: no apparent distress Neurologic Exam: alert, oriented x 3, cooperative Skin Exam: pale Wound Assessment: Skin/Wound Assessment Wound/Incision Assessment Start: 09/17/23 15:18 Text: Status: Active Freq: Q6H Protocol: Document 09/20/23 02:00 LIUCLAUDIO (Rec: 09/20/23 03:53 WAYNE [id number]) Wound/Incision Assessment Right Arm Wound Assessment Shift Assessment Wound Type Abrasion Wound Stage Non Pressure Wound Dressing Status Dry & Intact Drainage Amount Minimal Drainage Description Serous Drainage Odor None/Absent Primary Dressing MEPILEX Comment 2 ABRASION NOTED Eye Exam: PERRL Ears, Nose, Throat Exam: moist mucous membranes Neck Exam: normal inspection Respiratory Exam: normal breath sounds, lungs clear Cardiovascular Exam: regular rate/rhythm, normal heart sounds Gastrointestinal/Abdomen Exam: soft, normal bowel sounds Extremity Exam: limited range of motion (RLE in walking boot NWB) Back Exam: normal inspection Male Genitalia Exam: deferred OBJECTIVE DATA Vital Signs: Vital Signs - 24 hr Temp Pulse Resp BP Pulse Ox 09/20/23 04:00 97.3 F 60 16 121/62 95 09/19/23 23:41 97.1 F 60 16 165/72 96 09/19/23 19:45 96.9 F 62 16 173/74 98 09/19/23 15:17 72 09/19/23 15:00 97.7 F 65 17 122/67 92 L 09/19/23 11:00 98.4 F 72 17 143/61 95 09/19/23 07:00 70 17 124/60 95 Pain Assessment - Last Documented Pain Intensity 0 Pain Scale Used 0-10 Pain Scale Intake and Output: Intake & Output 09/17/23 09/18/23 09/19/23 09/20/23 11:59 11:59 11:59 11:59 Intake Total 2206 1400 600 Output Total 1150 2725 925 Balance 1056 -1325 -325 Weight 74.843 kg 78.3 kg Lab Results: Lab Results-Last 24 Hours 09/19/23 09/19/23 09/19/23 Range/Units 04:46 06:27 11:28 Sodium 129 L (137-145) mmol/L Potassium 3.9 (3.5-5.1) mmol/L Chloride 102 (98-107) mmol/L Carbon Dioxide 21 L (22-30) mmol/L Anion Gap 10.4 (5-15) MEQ/L BUN 22 H (9-20) mg/dL Creatinine 1.13 (0.66-1.25) mg/dL Estimated GFR 64.1 ML/MIN Glucose 104 (74-106) mg/dL POC Glucometer 104 135 H (74 to 106) mg/dL Calcium 8.5 (8.4-10.2) mg/dL Total Bilirubin 1.20 (0.2-1.3) mg/dL AST 30 (17-59) U/L ALT 14 (0-50) U/L Alkaline Phosphatase 105 (38-126) U/L Serum Total Protein 6.2 L (6.3-8.2) g/dL Albumin 3.2 L (3.5-5.0) g/dL 09/19/23 09/19/23 Range/Units 16:38 21:36 Sodium (137-145) mmol/L Potassium (3.5-5.1) mmol/L Chloride (98-107) mmol/L Carbon Dioxide (22-30) mmol/L Anion Gap (5-15) MEQ/L BUN (9-20) mg/dL Creatinine (0.66-1.25) mg/dL Estimated GFR ML/MIN Glucose (74-106) mg/dL POC Glucometer 167 H 115 H (74 to 106) mg/dL Calcium (8.4-10.2) mg/dL Total Bilirubin (0.2-1.3) mg/dL AST (17-59) U/L ALT (0-50) U/L Alkaline Phosphatase (38-126) U/L Serum Total Protein (6.3-8.2) g/dL Albumin (3.5-5.0) g/dL Radiology Exams: Radiology Procedures Category Date Time Status CHEST WITH CONTRAST [CT] Stat Exams 09/19/23 10:06 Completed ECHO W/2D AND DOPPLER [US] Routine Exams 09/19/23 11:55 Taken LOWER LEG Stat Exams 09/19/23 07:54 Completed VENOUS BILATERAL EXTREMITY [US] Routine Exams 09/19/23 12:52 Completed Multi-Disciplinary Progress Notes: Multi-Disciplinary Progress Notes 09/19/23 14:21 Case Management Note by Ludy John FULL REFERRAL WITH [facility] PAPERWORK FAXED TO [facility] AT THIS TIME Initialized on 09/19/23 14:21 - END OF NOTE 09/19/23 14:21 Case Management Note by Ludy John PAPERWORK COMPLETE AT THIS TIME- NO LEVEL II REQUIRED. COPY PLACED ON CHART Initialized on 09/19/23 14:21 - END OF NOTE Assessment/Plan (1) Syncope Current Visit: Yes Status: Acute Assessment & Plan: - Pacemaker interrogated last 3 months ago by cardiolgy - Consider cardiology consult- not available until Tuesday - PT/OT - + orthosttic hypotension - gentle hydration - CT head negative for acute process 09/18 - orthostats- pending - PT eval tomorrow - Echo tomorrow 09/19 -Echo pending -Orthostat vitals positive -Call out to Dr. Yancey, may need pacemaker interrogated again 09/20: -Midodrine restarted and increased to 10mg TID -Follow up with [facility] 1-2 weeks post d/c Code(s): R55 - SYNCOPE AND COLLAPSE (2) Elevated d-dimer Current Visit: No Status: Acute Assessment & Plan: - D-dimer 10.71 - unable to do CT chest w/o contrast due to OLIVIA- If improves order tuesday. - Unable to do VQ scan at this facility over the weekend - Start therapeutic lovenox - Echo, US of carotids, and Venous duplex of BLLE Tuesday- unable to do on the weekends - Cardiology consult Tuesday- will need ordered 09/19: -CT ordered for today -Lovenox continued -Pt recently had US of carotids, we will cancel this study -Venous duplex negative for DVT 09/30: -Echo read and discussed with Dr. Yancey IMPRESSION: 1) NO DEFINITE REGIONAL WALL MOTION ABNORMALITY. ESTIMATED GLOBAL LEFT VENTRICULAR EJECTION FRACTION OF AROUND 55 TO 60%. 2) TRACE MITRAL REGURGITATION. 3) MILD AORTIC REGURGITATION. 4) MILD TO MODERATE TRICUSPID REGURGITATION. RIGHT VENTRICULAR SYSTOLIC PRESSURE OF 43 MM OF MERCURY. 5) LEFT VENTRICULAR HYPERTROPHY. 6) LEFT VENTRICULAR SYSTOLIC FUNCTION. Code(s): R79.89 - OTHER SPECIFIED ABNORMAL FINDINGS OF BLOOD CHEMISTRY (3) Acute on chronic renal failure Current Visit: Yes Status: Acute Assessment & Plan: - Hold midodrine, jardiance, flomax - IVF bolus gave in ER - gentle hydration - Follows Nephrology Dr. Smiley 09/18 - IVF stopped - Labs improving- trend 09/19: -Creat now normal, will continue to monitor as pt is having CT today Code(s): N17.9 - ACUTE KIDNEY FAILURE, UNSPECIFIED; N18.9 - CHRONIC KIDNEY DISEASE, UNSPECIFIED (4) Right foot pain Current Visit: Yes Status: Acute Assessment & Plan: - RICE techniques - Right foot and ankle XR pending - podiatry consult- Tuesday - Tylenol for pain- refusing narcotic pain meds 09/19: -Podiatry consulted, recommend to remain NWB and rehab for about 6-8 weeks for which pt is agreeable. CM working on placement. No surgical intervention Code(s): M79.671 - PAIN IN RIGHT FOOT (5) Right ankle pain Current Visit: Yes Status: Acute Assessment & Plan: - XR pending - RICE techniques - Most likely will need OP rehab at d/c- discuss with CM Wednesday 09/19: -See right foot pain Code(s): M25.571 - PAIN IN RIGHT ANKLE AND JOINTS OF RIGHT FOOT (6) GERD (gastroesophageal reflux disease) Current Visit: Yes Status: Acute Assessment & Plan: - continue pepcid Code(s): K21.9 - GASTRO-ESOPHAGEAL REFLUX DISEASE WITHOUT ESOPHAGITIS (7) Hyponatremia Current Visit: Yes Status: Acute Assessment & Plan: - Na+ 131 - Fluid bolus gave in ER - gentle hydration 09/18 - Na+ 130- mild - trend - stopped IV fluids d/t heart hx - trend 09/19: -Improving, now at 129, will continue to monitor Code(s): E87.1 - HYPO-OSMOLALITY AND HYPONATREMIA (8) Elevated glucose Current Visit: Yes Status: Acute Assessment & Plan: - pt reports pre- DM - Stopped jardiance - 06/01/23 -A1C 5.79 - Accucheck AC/HS - Low dose humalog s/s Code(s): R73.09 - OTHER ABNORMAL GLUCOSE (9) HTN (hypertension) Current Visit: Yes Status: Acute Assessment & Plan: - Continue beta nando - IV hydralizine PRN - BP stable VTE: lovenox PPI: pepcid Next of Kin: Daughter- Nirmal Negron [phone] D/C plan: 2-3 days Code status: full Code(s): R55 - SYNCOPE AND COLLAPSE (2) Acute on chronic renal failure Current Visit: Yes Status: Acute Code(s): N17.9 - ACUTE KIDNEY FAILURE, UNSPECIFIED; N18.9 - CHRONIC KIDNEY DISEASE, UNSPECIFIED (3) Elevated glucose Current Visit: Yes Status: Acute Code(s): R73.09 - OTHER ABNORMAL GLUCOSE (4) GERD (gastroesophageal reflux disease) Current Visit: Yes Status: Acute Code(s): K21.9 - GASTRO-ESOPHAGEAL REFLUX DISEASE WITHOUT ESOPHAGITIS (5) HTN (hypertension) Current Visit: Yes Status: Acute Code(s): I10 - ESSENTIAL (PRIMARY) HYPERTENSION (6) Hyponatremia Current Visit: Yes Status: Acute Code(s): E87.1 - HYPO-OSMOLALITY AND HYPONATREMIA (7) Right ankle pain Current Visit: Yes Status: Acute Code(s): M25.571 - PAIN IN RIGHT ANKLE AND JOINTS OF RIGHT FOOT (8) Right foot pain Current Visit: Yes Status: Acute Code(s): M79.671 - PAIN IN RIGHT FOOT (9) Elevated d-dimer Current Visit: No Status: Acute Code(s): R79.89 - OTHER SPECIFIED ABNORMAL FINDINGS OF BLOOD CHEMISTRY
[2023-09-20 06:11] LABS: Absolute Neutrophil Ct (ANC) 2.81 x10^3/uL (1.4-6.9); BASOPHIL % 0.5 % (0.0-0.4); Basophil (Absolute #) 0.03 x10^3/uL (0-0.4); Eosinophil % 3.1 % (0.00-5.0); Eosinophil (Absolute #) 0.18 x10^3/uL (0-0.5); Hematocrit 30.9 % (42-50); Hemoglobin 10.2 g/dL (12.5-18.0); IMMATURE GRAN # 0.02 x10^3u/L (0.00-0.03); IMMATURE GRAN % 0.3 % (0.00-0.4); Lymphocyte (Absolute #) 1.98 x10^3/uL (1.0-4.6); Mean Cell Volume 104.4 fL (78-100); Mean Corpuscular Hemoglobin 34.5 pg (26-32); Mean Platelet Volume 9.4 fL (7.5-11.0); Monocytes % 13.7 % (0.0-12.0); Neutrophil % 48.4 % (36.0-66.0); Platelet Count 155 x10^3/uL (150-450); Red Blood Count 2.96 x10^6/uL (4.1-5.6); Red Cell Distribution Width 13.4 % (11.5-14.0); White Blood Count 5.8 x10^3/uL (4.0-10.5)
[2023-09-20 06:39] LABS: ALBUMIN 3.4 g/dL (3.5-5.0); ANION GAP 12.1 MEQ/L (5-15); BILIRUBIN,TOTAL 0.8 mg/dL (0.2-1.3); Calcium 8.7 mg/dL (8.4-10.2); Creatinine 1 1.18 mg/dL (0.66-1.25); EST GLOMERULAR FILTRATION RATE 60.9 ML/MIN; Total Protein 6.5 g/dL (6.3-8.2)
--- NOTE | 2023-09-20 07:58 | ECHO ---
Transthoracic echocardiographic examination and color Doppler was done on 09/19/2023. INDICATION: Hypertension. IMPRESSION: 1) NO DEFINITE REGIONAL WALL MOTION ABNORMALITY. ESTIMATED GLOBAL LEFT VENTRICULAR EJECTION FRACTION OF AROUND 55 TO 60%. 2) TRACE MITRAL REGURGITATION. 3) MILD AORTIC REGURGITATION. 4) MILD TO MODERATE TRICUSPID REGURGITATION. RIGHT VENTRICULAR SYSTOLIC PRESSURE OF 43 MM OF MERCURY. 5) LEFT VENTRICULAR HYPERTROPHY. 6) LEFT VENTRICULAR SYSTOLIC FUNCTION. The left ventricle is visualized and demonstrated adequate motion of all the segments. Estimated global left ventricular ejection fraction around 55 to 60%. There is mild left ventricular hypertrophy. The mitral valve is seen and this opens adequately. There is trace mitral regurgitation. Tissue Doppler study of the lateral mitral annulus suggestive of left ventricle diastolic dysfunction. The aortic valve appears to be trileaflet. There is no significant gradient across the left ventricular outflow tract. There is mild aortic regurgitation. The right side chambers are normal. There is mild to moderate tricuspid regurgitation. The right ventricular systolic pressure of 43 mm of Mercury with trace pulmonic insufficiency. There is a pacemaker electrode in the right ventricle.
[2023-09-20] MEDS: PROAMATINE PO SCH ×2 (09:13→12:44)
[2023-09-20] MEDS: TYLENOL 325 MG PO PRN (09:13)
[2023-09-20] MEDS: BACIGUENT 30 GM TP SCH (10:55)
[2023-09-20] MEDS: Pepcid 20 MG PO SCH (10:56)
[2023-09-20] MEDS: ENOXAPARIN SODIUM SQ SCH ×2 (10:56→22:50)
[2023-09-20] MEDS: ECOTRIN 81 MG PO SCH (10:56)
[2023-09-20] MEDS: Cymbalta 30 MG Capsule PO SCH (10:56)
[2023-09-20] MEDS: Proscar 5 MG PO SCH (10:56)
[2023-09-20] MEDS: Lopressor 25MG Tab PO SCH ×2 (10:56→21:07)
[2023-09-20] MEDS ORDERED: PROAMATINE PO SCH (12:09)
[2023-09-20] MEDS ORDERED: APRESOLINE 20 MG/ML INJ IV PRN (17:35)
[2023-09-20] MEDS: APRESOLINE 20 MG/ML INJ IV PRN ×2 (17:45→18:34)
[2023-09-20] MEDS: ZOCOR 20MG PO SCH (21:07)
[2023-09-20 23:58] VITALS: RESP 16
[2023-09-21 08:12] LABS: BASOPHIL % 0.5 % (0.0-0.4); Basophil (Absolute #) 0.03 x10^3/uL (0-0.4); Eosinophil (Absolute #) 0.11 x10^3/uL (0-0.5); Hematocrit 31.7 % (42-50); Hemoglobin 10.7 g/dL (12.5-18.0); IMMATURE GRAN # 0.01 x10^3u/L (0.00-0.03); IMMATURE GRAN % 0.2 % (0.00-0.4); Lymphocyte (Absolute #) 1.93 x10^3/uL (1.0-4.6); Lymphocytes % 34.6 % (24.0-44.0); Mean Cell Volume 103.6 fL (78-100); Mean Corpuscular Hgb Concent. 33.8 g/dL (32-36); Mean Platelet Volume 9.2 fL (7.5-11.0); Monocyte (Absolute #) 0.69 x10^3/uL (0.0-1.3); Monocytes % 12.4 % (0.0-12.0); Neutrophil % 50.3 % (36.0-66.0); Platelet Count 167 x10^3/uL (150-450); Red Blood Count 3.06 x10^6/uL (4.1-5.6); Red Cell Distribution Width 13.6 % (11.5-14.0); White Blood Count 5.6 x10^3/uL (4.0-10.5)
[2023-09-21] MEDS: PROAMATINE PO SCH ×2 (08:29→11:21)
[2023-09-21 08:36] LABS: ALBUMIN 3.6 g/dL (3.5-5.0); ANION GAP 12.1 MEQ/L (5-15); Creatinine 1 1.08 mg/dL (0.66-1.25); EST GLOMERULAR FILTRATION RATE 67.7 ML/MIN; Potassium 4.2 mmol/L (3.5-5.1); Total Protein 6.7 g/dL (6.3-8.2)
[2023-09-21] MEDS: Cymbalta 30 MG Capsule PO SCH (09:13)
[2023-09-21] MEDS: Pepcid 20 MG PO SCH (09:13)
[2023-09-21] MEDS: BACIGUENT 30 GM TP SCH (09:14)
[2023-09-21] MEDS: Lopressor 25MG Tab PO SCH (09:14)
[2023-09-21] MEDS: ECOTRIN 81 MG PO SCH (09:14)
[2023-09-21] MEDS: Proscar 5 MG PO SCH (09:15)
[2023-09-21] MEDS ORDERED: ENOXAPARIN SODIUM SQ SCH (10:00)
--- NOTE | 2023-09-21 12:23 | PCM.DS ---
Discharge Summary Date of Admission: 09/18/23 12:48 Date of Discharge: 09/21/23 Admitting Physician: ELEUTERIO NULL MD Consults: Consults on Case 09/17/23 16:01 Consult Podiatry ROUTINE Primary Care Provider: JAYDA GONSALEZ MICHELLE Allergies Allergies No Known Drug Allergies Allergy (Verified 09/17/23 11:46) Hospital Summary - Hospital Course Hospital Course: is a 83 year old male with past medical history of congestive cardiomyopathy, pacemaker, pacemaker placement 2-3 years ago, orthostatic hypotension, chronic renal insufficiency, peripheral neuropathy, COPD, GERD, Pre-diabetic, prostate problems, and frequent falls at home who presented to ED 09/17/23 after a ground level fall rendering him unable to stand or ambulate due to the pain in his right ankle. Patient had also hit his head and right arm in the fall. Patient also endorsed dizziness and shakiness prior to falling. Johnny ghter states patient has been more confused lately. CT head with no acute findings. Ddimer elevated. CT chest demonstrates fibrosis vs interstitial lung disease, bilateral small emphysematous bullae, right basal atelctatic bnads, a small hiatus hernia, as well as degenerative changes of the spine. CXR negative. Right foot and ankle xrays with nondisplaced transverse fractures proximal shafts 2nd-4th metatarsals with soft tissue swelling. Elsewhere osteopenia, tiny heel spurs, and moderate scattered vascular calcifications. Podiatry has been consulted with recs for non-surgical intervention RICE/NWB, patient agreeable to rehab. Patient does have orthostasis. This was likely cause for syncope. Work up for syncope otherwise negative. Venous dopplers negative. Patient is nonweight bearing for metatarsal fractures. Patient follows with Dr. Yancey, who reviewed echo, recommends midodrine and follow up as op. CTA negative for PE. Midodrine restarted. Patient stable for discharge to SNF for rehab stay. Discharge Note New Diagnosis:metatarsal fracture of the right foot New Medications: midodrine Follow Up: Results pending: Outpatient testing to order: Latest Assessment & Plan (1) Syncope Current Visit: Yes Status: Acute Assessment & Plan: - Pacemaker interrogated last 3 months ago by cardiolgy - Consider cardiology consult- not available until Tuesday - PT/OT - + orthosttic hypotension - gentle hydration - CT head negative for acute process 09/18 - orthostats- pending - PT eval tomorrow - Echo tomorrow 09/19 -Echo pending -Orthostat vitals positive -Call out to Dr. Yancey, may need pacemaker interrogated again 09/20: -Midodrine restarted and increased to 10mg TID -Follow up with [facility] 1-2 weeks post d/c Code(s): R55 - SYNCOPE AND COLLAPSE (2) Elevated d-dimer Current Visit: No Status: Acute Assessment & Plan: - D-dimer 10.71 - unable to do CT chest w/o contrast due to OLIVIA- If improves order tuesday. - Unable to do VQ scan at this facility over the weekend - Start therapeutic lovenox - Echo, US of carotids, and Venous duplex of BLLE Tuesday- unable to do on the weekends - Cardiology consult Tuesday- will need ordered 09/19: -CT ordered for today -Lovenox continued -Pt recently had US of carotids, we will cancel this study -Venous duplex negative for DVT 09/30: -Echo read and discussed with Dr. Yancey IMPRESSION: 1) NO DEFINITE REGIONAL WALL MOTION ABNORMALITY. ESTIMATED GLOBAL LEFT VENTRICULAR EJECTION FRACTION OF AROUND 55 TO 60%. 2) TRACE MITRAL REGURGITATION. 3) MILD AORTIC REGURGITATION. 4) MILD TO MODERATE TRICUSPID REGURGITATION. RIGHT VENTRICULAR SYSTOLIC PRESSURE OF 43 MM OF MERCURY. 5) LEFT VENTRICULAR HYPERTROPHY. 6) LEFT VENTRICULAR SYSTOLIC FUNCTION. Code(s): R79.89 - OTHER SPECIFIED ABNORMAL FINDINGS OF BLOOD CHEMISTRY (3) Acute on chronic renal failure Current Visit: Yes Status: Acute Assessment & Plan: - Hold midodrine, jardiance, flomax - IVF bolus gave in ER - gentle hydration - Follows Nephrology Dr. Smiley 09/18 - IVF stopped - Labs improving- trend 09/19: -Creat now normal, will continue to monitor as pt is having CT today Code(s): N17.9 - ACUTE KIDNEY FAILURE, UNSPECIFIED; N18.9 - CHRONIC KIDNEY DI SEASE, UNSPECIFIED (4) Right foot pain Current Visit: Yes Status: Acute Assessment & Plan: - RICE techniques - Right foot and ankle XR pending - podiatry consult- Tuesday - Tylenol for pain- refusing narcotic pain meds 09/19: -Podiatry consulted, recommend to remain [facility] and rehab for about 6-8 weeks for which pt is agreeable. CM working on placement. No surgical intervention Code(s): M79.671 - PAIN IN RIGHT FOOT (5) Right ankle pain Current Visit: Yes Status: Acute Assessment & Plan: - XR pending - RICE techniques - Most likely will need OP rehab at d/c- discuss with CM Wednesday 09/19: -See right foot pain Code(s): M25.571 - PAIN IN RIGHT ANKLE AND JOINTS OF RIGHT FOOT (6) GERD (gastroesophageal reflux disease) Current Visit: Yes Status: Acute Assessment & Plan: - continue pepcid Code(s): K21.9 - GASTRO-ESOPHAGEAL REFLUX DISEASE WITHOUT ESOPHAGITIS (7) Hyponatremia Current Visit: Yes Status: Acute Assessment & Plan: - Na+ 131 - Fluid bolus gave in ER - gentle hydration 09/18 - Na+ 130- mild - trend - stopped IV fluids d/t heart hx - trend 09/19: -Improving, now at 129, will continue to monitor Code(s): E87.1 - HYPO-OSMOLALITY AND HYPONATREMIA (8) Elevated glucose Current Visit: Yes Status: Acute Assessment & Plan: - pt reports pre- DM - Stopped jardiance - 06/01/23 -A1C 5.79 - Accucheck AC/HS - Low dose humalog s/s Code(s): R73.09 - OTHER ABNORMAL GLUCOSE (9) HTN (hypertension) Current Visit: Yes Status: Acute Assessment & Plan: - Continue beta nando - IV hydralizine PRN - BP stable I spent 35 minutes [id number] with the patient on the day of discharge per forming discharge exam, discussing hospital stay and discharge instructions with patient and caregivers, preparation of discharge records, prescriptions & referral forms and addressing any questions/concerns the patient had as documented above. - Vitals & Intake/Output Vital Signs: Vital Signs Temperature 97.9 F 09/21/23 11:56 Pulse Rate 72 09/21/23 11:56 Respiratory Rate 16 09/21/23 11:56 Blood Pressure 189/75 09/21/23 11:56 O2 Sat by Pulse Oximetry 92 L 09/21/23 11:56 Intake & Output: Intake & Output 09/19/23 09/20/23 09/21/23 09/22/23 11:59 11:59 11:59 11:59 Intake Total 3065 547 4246 Output Total 0382 927 500 Balance -1325 -90 650 Weight 78.3 kg - Lab Result Diagrams: 09/21/23 08:05 09/21/23 08:05 Lab Results-Last 24 Hrs: Lab Results-Last 24 Hours 09/20/23 09/20/23 09/21/23 Range/Units 16:20 20:26 07:15 WBC (4.0-10.5) x10^3/uL RBC (4.1-5.6) x10^6/uL Hgb (12.5-18.0) g/dL Hct (42-50) % MCV (78-100) fL MCH (26-32) pg MCHC (32-36) g/dL RDW (11.5-14.0) % Plt Count (150-450) x10^3/uL MPV (7.5-11.0) fL Gran % (36.0-66.0) % Immature Gran % (Auto) (0.00-0.4) % Nucleat RBC Rel Count (0.00-0.1) % Eos # (Auto) (0-0.5) x10^3/uL Immature Gran # (Auto) (0.00-0.03) x10^3u/L Absolute Lymphs (auto) (1.0-4.6) x10^3/uL Absolute Monos (auto) (0.0-1.3) x10^3/uL Absolute Nucleated RBC (0.00-0.01) x10^3u/L Lymphocytes % (24.0-44.0) % Monocytes % (0.0-12.0) % Eosinophils % (0.00-5.0) % Basophils % (0.0-0.4) % Absolute Granulocytes (1.4-6.9) x10^3/uL Basophils # (0-0.4) x10^3/uL Sodium (137-145) mmol/L Potassium (3.5-5.1) mmol/L Chloride (98-107) mmol/L Carbon Dioxide (22-30) mmol/L Anion Gap (5-15) MEQ/L BUN (9-20) mg/dL Creatinine (0.66-1.25) mg/dL Estimated GFR ML/MIN Glucose (74-106) mg/dL POC Glucometer 88 91 106 (74 to 106) mg/dL Calcium (8.4-10.2) mg/dL Total Bilirubin (0.2-1.3) mg/dL AST (17-59) U/L ALT (0-50) U/L Alkaline Phosphatase (38-126) U/L Serum Total Protein (6.3-8.2) g/dL Albumin (3.5-5.0) g/dL 09/21/23 09/21/23 09/21/23 Range/Units 08:05 08:05 11:35 WBC 5.6 (4.0-10.5) x10^3/uL RBC 3.06 L (4.1-5.6) x10^6/uL Hgb 10.7 L (12.5-18.0) g/dL Hct 31.7 L (42-50) % MCV 103.6 H (78-100) fL MCH 35.0 H (26-32) pg MCHC 33.8 (32-36) g/dL RDW 13.6 (11.5-14.0) % Plt Count 167 (150-450) x10^3/uL MPV 9.2 (7.5-11.0) fL Gran % 50.3 (36.0-66.0) % Immature Gran % (Auto) 0.2 (0.00-0.4) % Nucleat RBC Rel Count 0.0 (0.00-0.1) % Eos # (Auto) 0.11 (0-0.5) x10^3/uL Immature Gran # (Auto) 0.01 (0.00-0.03) x10^3u/L Absolute Lymphs (auto) 1.93 (1.0-4.6) x10^3/uL Absolute Monos (auto) 0.69 (0.0-1.3) x10^3/uL Absolute Nucleated RBC 0.00 (0.00-0.01) x10^3u/L Lymphocytes % 34.6 (24.0-44.0) % Monocytes % 12.4 H (0.0-12.0) % Eosinophils % 2.0 (0.00-5.0) % Basophils % 0.5 (0.0-0.4) % Absolute Granulocytes 2.80 (1.4-6.9) x10^3/uL Basophils # 0.03 (0-0.4) x10^3/uL Sodium 131 L (137-145) mmol/L Potassium 4.2 (3.5-5.1) mmol/L Chloride 101 (98-107) mmol/L Carbon Dioxide 22 (22-30) mmol/L Anion Gap 12.1 (5-15) MEQ/L BUN 15 (9-20) mg/dL Creatinine 1.08 (0.66-1.25) mg/dL Estimated GFR 67.7 ML/MIN Glucose 108 H (74-106) mg/dL POC Glucometer 108 H (74 to 106) mg/dL Calcium 9.0 (8.4-10.2) mg/dL Total Bilirubin 1.00 (0.2-1.3) mg/dL AST 52 (17-59) U/L ALT 26 (0-50) U/L Alkaline Phosphatase 113 (38-126) U/L Serum Total Protein 6.7 (6.3-8.2) g/dL Albumin 3.6 (3.5-5.0) g/dL Micro Results-Entire Visit: Accuchecks Date 09/21/23 Date 09/21/23 Date 09/20/23 Date 09/20/23 Time 11:57 Time 07:19 Time 21:27 Time 16:27 - Radiology Exams Ordered Rad Exams-Entire Visit: Radiology Procedures Category Date Time Status ECHO W/2D AND DOPPLER [US] Routine Exams 09/19/23 11:55 Draft VENOUS BILATERAL EXTREMITY [US] Routine Exams 09/19/23 12:52 Completed - Procedures and Test Procedures and Tests throughout Hospitalization: Therapy Orders & Screens 09/17/23 14:33 Oxygen Nasal Cannula 2 lpm Comment: 09/17/23 15:18 OT Screen per Nursing Assess ONCE Comment: Protocol Order Physician Instructions: Greater than 3 points order OT Admission Screening Reason For Exam: Triggered on Admission Diagnosis: elevated d dimer. fracture right foot, renal failure Open Wound/Cellutlitis/Pressure Ulcers: Yes Acute Fx/ORIF/Change in wt bearing status: Yes Severe MUSCULOSKELETAL pain: No ADL Dysfunction: Yes Acute CVA w/Hemiparesis/Hemiplegia: No Decreased Functional Mobility/Strength: Yes Sprain/Strain: Yes Acute Post-op Mobility Dysfunction: No Total Points: 17 PT Screen per Nursing Assess ONCE Comment: Protocol Order Physician Instructions: Greater than 3 points order PT Admission Screenin Reason For Exam: Triggered on Admission Diagnosis: elevated d dimer. fracture right foot, renal failure Open Wound/Cellutlitis/Pressure Ulcers: Yes Acute Fx/ORIF/Change in wt bearing status: Yes Severe MUSCULOSKELETAL pain: No ADL Dysfunction: Yes Acute CVA w/Hemiparesis/Hemiplegia: No Decreased Functional Mobility/Strength: Yes Sprain/Strain: Yes Acute Post-op Mobility Dysfunction: No Total Points: 17 Discharge Exam General Appearance: no apparent distress Neurologic Exam: alert, oriented x 3, cooperative Eye Exam: PERRL Ears, Nose, Throat Exam: normal ENT inspection Neck Exam: normal inspection Respiratory Exam: normal breath sounds, lungs clear Cardiovascular Exam: regular rate/rhythm, normal heart sounds Gastrointestinal/Abdomen Exam: soft, normal bowel sounds Male Genitalia Exam: deferred Rectal Exam: deferred Back Exam: normal inspection Extremity Exam: limited range of motion, other (RLE in boot) Skin Exam: normal color Wound Assessment: Skin/Wound Assessment Wound/Incision Assessment Start: 09/17/23 15:18 Text: Status: Active Freq: Q6H Protocol: Document 09/21/23 07:45 WAYNE (Rec: 09/21/23 07:52 WAYNE [id number]) Wound/Incision Assessment Right Arm Wound Assessment Shift Assessment Wound Type Abrasion Wound Stage Non Pressure Wound Dressing Status Dry & Intact Drainage Amount None Primary Dressing MEPILEX Comment 2 ABRASIONS NOTED, DRESSINGS ARE CLEAN, DRY AND INTACT Final Diagnosis/Problem List - Final Discharge Diagnosis/Problem (1) Closed fracture of second metatarsal bone of right foot Current Visit: Yes Status: Acute Code(s): S92.321A - DISP FX OF SECOND METATARSAL BONE, RIGHT FOOT, INIT (2) Closed fracture of fourth metatarsal of right foot Current Visit: Yes Status: Acute Code(s): S92.341A - DISP FX OF FOURTH METATARSAL BONE, RIGHT FOOT, INIT (3) Closed fracture of third metatarsal bone of right foot Current Visit: Yes Status: Acute Code(s): S92.331A - DISP FX OF THIRD METATARSAL BONE, RIGHT FOOT, INIT (4) Syncope Current Visit: Yes Status: Acute Code(s): R55 - SYNCOPE AND COLLAPSE (5) Acute on chronic renal failure Current Visit: Yes Status: Acute Code(s): N17.9 - ACUTE KIDNEY FAILURE, UNSPECIFIED; N18.9 - CHRONIC KIDNEY DISEASE, UNSPECIFIED (6) Elevated glucose Current Visit: Yes Status: Acute Code(s): R73.09 - OTHER ABNORMAL GLUCOSE (7) GERD (gastroesophageal reflux disease) Current Visit: Yes Status: Acute Code(s): K21.9 - GASTRO-ESOPHAGEAL REFLUX DISEASE WITHOUT ESOPHAGITIS (8) HTN (hypertension) Current Visit: Yes Status: Acute Code(s): I10 - ESSENTIAL (PRIMARY) HYPERTENSION (9) Hyponatremia Current Visit: Yes Status: Acute Code(s): E87.1 - HYPO-OSMOLALITY AND HYPONATREMIA (10) Right ankle pain Current Visit: Yes Status: Acute Code(s): M25.571 - PAIN IN RIGHT ANKLE AND JOINTS OF RIGHT FOOT (11) Right foot pain Current Visit: Yes Status: Acute Code(s): M79.671 - PAIN IN RIGHT FOOT (12) Elevated d-dimer Current Visit: No Status: Acute Code(s): R79.89 - OTHER SPECIFIED ABNORMAL FINDINGS OF BLOOD CHEMISTRY - Discharge Discharge Date: 09/21/23 Disposition: DC TO ANY "OTHER" [facility] Condition: Stable Prescriptions: New Midodrine HCl [Proamatine] 5 mg PO TIDWM tablet Continue Aspirin [Aspirin EC] 81 mg PO DAILY Pravastatin Sodium [Pravachol] 80 mg PO HS Tamsulosin HCl 0.4 mg [Flomax 0.4 MG] 0.4 mg PO BID Duloxetine HCl [Cymbalta] 60 mg PO DAILY Empagliflozin [Jardiance] 10 mg PO DAILY Famotidine 20 mg [Pepcid 20 MG] 40 mg PO DAILY Finasteride 5 mg [Proscar 5 MG] 5 mg PO DAILY Metoprolol Tartrate 12.5 mg PO BID Discontinued Midodrine HCl 2.5 mg PO TID Additional Instructions: [facility] ORDERS: ADMIT TO [facility] ACCU CHECKS HEART HEALTHY DIET PT/OT EVAL AND TREAT- SEE WTBEARING RESTRICTIONS MAY PARTIAL WTBEAR ON RIGHT RIGHT FOOT WITH ASSISTANCE SEE FOLLOW UP APT. WITH PODIATRY SEE ATTACHED MED LIST Follow up with: AFRA JERONIMO DPM [ACTIVE STAFF] - 10/05/23 10:00 am JAYDA GONSALEZ MD [Primary Care Provider] - SHADY YANCEY [CONSULTING PHYSICIAN] - 1 Week
[2023-09-21 16:02] VITALS: BP 176/81; PULSE 96; TEMP 97.6; O2SAT 93
== END 2023-09-21 16:27 | DRG 563 ==
LOC: ED 11:20 → MED SURG 14:25 → OBSVTOIN 09-18 12:48
PROVIDERS: ADMIT Internal Medicine; ATTEND Internal Medicine
DX: S92.321A Displaced fracture of second metatarsal bone, right foot, initial encounter for closed fracture (principal); E87.1 Hypo-osmolality and hyponatremia; N17.9 Acute kidney failure, unspecified; S92.331A Displaced fracture of third metatarsal bone, right foot, initial encounter for closed fracture; S92.341A Displaced fracture of fourth metatarsal bone, right foot, initial encounter for closed fracture; S82.839A Other fracture of upper and lower end of unspecified fibula, initial encounter for closed fracture; R55 Syncope and collapse; W19.XXXA Unspecified fall, initial encounter; R42 Dizziness and giddiness; R79.1 Abnormal coagulation profile; R73.09 Other abnormal glucose; I08.3 Combined rheumatic disorders of mitral, aortic and tricuspid valves; R79.89 Other specified abnormal findings of blood chemistry; I12.9 Hypertensive chronic kidney disease with stage 1 through stage 4 chronic kidney disease, or unspecified chronic kidney disease; N18.9 Chronic kidney disease, unspecified; K21.9 Gastro-esophageal reflux disease without esophagitis; Z95.0 Presence of cardiac pacemaker; Z79.899 Other long term (current) drug therapy; S00.01XA Abrasion of scalp, initial encounter; S50.311A Abrasion of right elbow, initial encounter; S60.811A Abrasion of right wrist, initial encounter
CPT/HCPCS: 28470; 36415; 70450; 71045; 71250; 71260; 73590; 73610; 73630; 80053; 81001; 82947; 83735; 83880; 84134; 84484; 85025; 85027; 85379; 93005; 93041; 93268; 93306; 93970; 96360; 96372; 99223; 99285; J0360; J1650; Q3014; A9270-GY; G0378

== ENCOUNTER 2024-11-23 01:00 | Emergency (ER) | payer MEDICARE ==
--- NOTE | 2024-11-23 01:14 | ERPHSYRPT ---
- History of Present Illness Time Seen by Provider: 11/23/24 01:14 Historian: patient, family Exam Limitations: no limitations Physician History: this is an 84-year-old white male patient who arrives by private vehicle with a complaint of right-sided chest pressure that is associated with some indigestion that began at 2300 on 11/22/2024. The patient does have a history of coronary artery stent placement. He used to be on Plavix but he is no longer on Plavix or aspirin. He has a pacemaker in place. 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 Patient has chronic renal disease but it is been stable for several years. He has prostate issues, hyperlipidemia, gastroesophageal reflux disease diabetes and depression. He is not short of breath. The pain does not radiate anywhere Timing/Duration: yesterday Activities at Onset: none Quality: pressure Location: other (Right anterior chest) Severity of Pain-Max: mild Severity of Pain-Current: mild Modifying Factors: Improves With: nothing Associated Symptoms: denies symptoms Prior Chest Pain/Cardiac Workup: cardiac cath, echocardiography Nitro Today/Relief: no nitro taken today Aspirin Treatment Today: 81 mg x 4, provided by ED Allergies/Adverse Reactions: No Known Drug Allergies Allergy (Verified 11/23/24 01:31) Home Medications: Aspirin [Aspirin EC] 81 mg PO DAILY 01/04/14 [History] Pravastatin Sodium [Pravachol] 80 mg PO HS 01/04/14 [History] Tamsulosin HCl 0.4 mg [Flomax 0.4 MG] 0.4 mg PO BID 11/25/18 [History] Famotidine 20 mg [Pepcid 20 MG] 40 mg PO DAILY 09/17/23 [History] Finasteride 5 mg [Proscar 5 MG] 5 mg PO DAILY 09/17/23 [History] Metoprolol Tartrate 12.5 mg PO BID 09/17/23 [History] Hx Tetanus, Diphtheria Vaccination/Date Given: Yes Hx Influenza Vaccination/Date Given: Yes Hx Pneumococcal Vaccination/Date Given: Yes Travel Risk - International Travel Have you traveled outside of the country in past 3 weeks: No - Emerging Infectious Disease Are you exhibiting symptoms associated with any current EIDs: No - Review of Systems Constitutional: No Symptoms Eyes: No Symptoms Ears, Nose, & Throat: No Symptoms Respiratory: No Symptoms Cardiac: Chest Pain (Described as nonradiating right anterior chest pressure) Abdominal/Gastrointestinal: No Symptoms Genitourinary Symptoms: No Symptoms Musculoskeletal: No Symptoms Skin: No Symptoms Neurological: No Symptoms Psychological: No Symptoms Endocrine: No Symptoms Hematologic/Lymphatic: No Symptoms Immunological/Allergic: No Symptoms All Other Systems: Reviewed and Negative - Past Medical History Pertinent Past Medical History: Yes Neurological History: Peripheral Neuropathy ENT History: No Pertinent History Cardiac History: Other Respiratory History: COPD Endocrine Medical History: Other Musculoskeletal History: Osteoarthritis GI Medical History: GERD, Other History: No Pertinent History Psycho-Social History: No Pertinent History Male Reproductive Disorders: Prostate Problems Other Medical History: pre-diabetic, kidney infection. L knee meniscus test in 1974. - Past Surgical History Past Surgical History: Yes Neuro Surgical History: No Pertinent History Cardiac: Cardiac Catheterization, Cardiac Stent Respiratory: No Pertinent History Gastrointestinal: No Pertinent History Genitourinary: No Pertinent History Musculoskeletal: Orthopedic Surgery Male Surgical History: No Pertinent History Other Surgical History: left knee surgery - Social History Smoking Status: Former smoker How long have you smoked: 20years Exposure to second hand smoke: No Drug Use: none Patient Lives Alone: Yes - Social Determinants of Health Will the patient participate in the screening: Declined to provide - Nursing Vital Signs Nursing Vital Signs: Initial Vital Signs Temperature 96.4 F 11/23/24 01:08 Pulse Rate 76 11/23/24 01:08 Respiratory Rate 16 11/23/24 01:08 Blood Pressure 188/84 11/23/24 01:08 O2 Sat by Pulse Oximetry 94 L 11/23/24 01:08 Pain Scale Pain Intensity 4 - Physical Exam General Appearance: no apparent distress, alert Eye Exam: PERRL/EOMI, eyes nml inspection Ears, Nose, Throat Exam: normal ENT inspection, moist mucous membranes Neck Exam: normal inspection, non-tender, supple, full range of motion Respiratory Exam: normal breath sounds, lungs clear, No chest tenderness, No respiratory distress Cardiovascular Exam: regular rate/rhythm, normal heart sounds, normal peripheral pulses Gastrointestinal/Abdomen Exam: soft, normal bowel sounds, No tenderness Rectal Exam: not done Back Exam: normal inspection, normal range of motion, No CVA tenderness, No vertebral tenderness Extremity Exam: normal inspection, normal range of motion, pelvis stable Neurologic Exam: alert, oriented x 3, cooperative Skin Exam: normal color, warm, dry Lymphatic Exam: No adenopathy SpO2 Interpretation: normal, borderline oxygenation O2 Delivery: Room Air - Course Nursing assessment & vital signs reviewed: Yes EKG Interpreted by Me: RATE (85), Sinus Rhythm, NORMAL AXIS, NORMAL INTERVALS, NORMAL QRS, Other (QTc is 458. No acute ischemia on today's twelve-lead EKG) Ordered Tests: Active Orders 24 hr Category Date Time Status Electronics Engineering Professor STAT Care 11/23/24 01:34 Active EKG-ER Only STAT Care 11/23/24 01:34 Active IV Insertion STAT Care 11/23/24 01:34 Active Pulse Oximetry (ED) STAT Care 11/23/24 01:59 Active CHEST 1 VIEW (PORTABLE) Stat Exams 11/23/24 02:14 Taken CBC W DIFF Stat Lab 11/23/24 02:10 Completed CMP Stat Lab 11/23/24 02:10 Completed MAGNESIUM Stat Lab 11/23/24 02:10 Completed NT PRO BNPII Stat Lab 11/23/24 02:10 Completed TROPONIN Q4H Lab 11/23/24 02:10 Completed TROPONIN Q4H Lab 11/23/24 04:40 Completed TROPONIN Q4H Lab 11/23/24 10:00 Ordered Medication Summary Discontinued Medications Generic Name Dose Route Start Last Admin Trade Name Freq PRN Reason Stop Dose Admin Aspirin 324 mg 11/23/24 01:59 11/23/24 02:05 Aspirin 81 Mg Tab.Chew PO 11/23/24 02:00 324 mg STAT ONE Administration Aspirin Confirm 11/23/24 02:05 Aspirin 81 Mg Tab.Chew Administered 11/23/24 02:06 Dose 324 mg .ROUTE .STK-MED ONE Lab/Rad Data: Laboratory Result Diagrams 11/23/24 02:10 11/23/24 02:10 Laboratory Results 11/23/24 11/23/24 11/23/24 Range/Units 04:40 02:10 02:10 WBC (4.23-9.07) x10^3/uL RBC (4.63-6.08) x10^6/uL Hgb (13.7-17.5) g/dL Hct (40.1-51.0) % MCV (79.0-92.2) fL MCH (25.7-32.2) pg MCHC (32.3-36.5) g/dL RDW (11.6-14.4) % Plt Count (163-337) x10^3/uL MPV (9.4-12.4) fL Gran % (34.0-67.9) % Immature Gran % (Auto) (0.001-0.429) % Nucleat RBC Rel Count (0.00-0.2) % Eos # (Auto) (0.04-0.54) x10^3/uL Immature Gran # (Auto) (0.001-0.031) x10^3u/L Absolute Lymphs (auto) (1.32-3.57) x10^3/uL Absolute Monos (auto) (0.30-0.82) x10^3/uL Absolute Nucleated RBC (0.00-0.012) x10^3u/L Lymphocytes % (21.8-53.1) % Monocytes % (5.3-12.2) % Eosinophils % (0.8-7.0) % Basophils % (0.2-1.2) % Absolute Granulocytes (1.78-5.38) x10^3/uL Basophils # (0.01-0.08) x10^3/uL Sodium 133 L (135-145) mmol/L Potassium 4.5 (3.5-5.1) mmol/L Chloride 97 L (98-107) mmol/L Carbon Dioxide 27 (22-30) mmol/L Anion Gap 13.5 (5-15) MEQ/L BUN 20 (9-20) mg/dL Creatinine 1.59 H (0.66-1.25) mg/dL Estimated GFR 42.3 ML/MIN Glucose 99 (74-106) mg/dL Calcium 8.9 (8.4-10.2) mg/dL Magnesium 1.9 (1.6-2.3) mg/dL Total Bilirubin 0.90 (0.2-1.3) mg/dL AST 39 (17-59) U/L ALT 17 (0-50) U/L Alkaline Phosphatase 92 (38-126) U/L Troponin I < 0.012 < 0.012 (0.000-0.033) ng/mL NT-Pro-B Natriuret Pep 498 (<300) pg/mL Serum Total Protein 7.5 (6.3-8.2) g/dL Albumin 4.5 (3.5-5.0) g/dL 11/23/24 Range/Units 02:10 WBC 13.1 H (4.23-9.07) x10^3/uL RBC 3.55 L (4.63-6.08) x10^6/uL Hgb 11.9 L (13.7-17.5) g/dL Hct 35.1 L (40.1-51.0) % MCV 98.9 H (79.0-92.2) fL MCH 33.5 H (25.7-32.2) pg MCHC 33.9 (32.3-36.5) g/dL RDW 13.6 (11.6-14.4) % Plt Count 182 (163-337) x10^3/uL MPV 9.7 (9.4-12.4) fL Gran % 54.1 (34.0-67.9) % Immature Gran % (Auto) 0.3 (0.001-0.429) % Nucleat RBC Rel Count 0.0 (0.00-0.2) % Eos # (Auto) 0.23 (0.04-0.54) x10^3/uL Immature Gran # (Auto) 0.04 H (0.001-0.031) x10^3u/L Absolute Lymphs (auto) 4.53 H (1.32-3.57) x10^3/uL Absolute Monos (auto) 1.13 H (0.30-0.82) x10^3/uL Absolute Nucleated RBC 0.00 (0.00-0.012) x10^3u/L Lymphocytes % 34.7 (21.8-53.1) % Monocytes % 8.6 (5.3-12.2) % Eosinophils % 1.8 (0.8-7.0) % Basophils % 0.5 (0.2-1.2) % Absolute Granulocytes 7.08 H (1.78-5.38) x10^3/uL Basophils # 0.06 (0.01-0.08) x10^3/uL Sodium (135-145) mmol/L Potassium (3.5-5.1) mmol/L Chloride (98-107) mmol/L Carbon Dioxide (22-30) mmol/L Anion Gap (5-15) MEQ/L BUN (9-20) mg/dL Creatinine (0.66-1.25) mg/dL Estimated GFR ML/MIN Glucose (74-106) mg/dL Calcium (8.4-10.2) mg/dL Magnesium (1.6-2.3) mg/dL Total Bilirubin (0.2-1.3) mg/dL AST (17-59) U/L ALT (0-50) U/L Alkaline Phosphatase (38-126) U/L Troponin I (0.000-0.033) ng/mL NT-Pro-B Natriuret Pep (<300) pg/mL Serum Total Protein (6.3-8.2) g/dL Albumin (3.5-5.0) g/dL - Progress Progress: improved, re-examined Air Movement: good Progress Note: 11/23/24 02:15 My medical decision making and the assignment of moderate complexity to this patient's medical issue today is based on review of the patient's past medical history, review the patient's medication list, reviewed patient drug allergy list, history present illness and physical findings on examination. The workup in this patient includes placement of intravenous line, CBC, CMP, magnesium level, BNP, chest x-ray, twelve-lead EKG, troponin level. Differential diagnosis includes but is not limited to anemia, pneumonia, myocardial infarction, electrolyte abnormalities, arrhythmia 11/23/24 02:17 I interpreted the patient's preliminary chest x-ray results. There are no acute cardiopulmonary processes/abnormalities 11/23/24 05:33 I interpreted the patient's laboratory data results including the second, repeat troponin level. With the exception of mild leukocytosis of unknown cause, the patient's laboratory data does not show any acute, emergent medical issue. I also interpreted the patient's second twelve-lead EKG. the repeat twelve-lead EKG was performed at 432 on 11/23/2024. Heart rate is 74. Patient has normal sinus rhythm. There is no acute ischemia. There are normal intervals, normal axis deviation and normal QRS. QTc is 462 11/23/24 05:40 Patient was reexamined. Patient was updated on the results of his workup. Patient no longer has the chest pressure that he had before he does have his usual minor reflux symptoms. However, he states this is because he is laying flat during the hospital/emergency department stay Blood Culture(s) Obtained: No Antibiotics given: No Counseled pt/family regarding: lab results, diagnosis, need for follow-up, rad results Medical Desision Making - Diagnostic Testing Diagnostic test were ordered, analyzed, and reviewed by me: Yes Radiological Interpretation: Interpreted by me, Teleradiologist Report - Risk of complications Low Risk: Low risk of morbidity from additional dx testing or treatment - Departure Departure Disposition: Home Clinical Impression: Nonspecific chest pain Condition: Stable Critical Care Time: No Referrals: JAYDA GONSALEZ MD [Primary Care Provider] - Follow up/PCP as directed Additional Instructions: Drink plenty of fluids. Avoid fatty greasy spicy foods. Call your hoisting engineer pile driving today, 11/23/2024, to make arranges for follow-up appointment for further evaluation and management.
[2024-11-23 01:31] VITALS: TEMP 96.4
[2024-11-23 02:03] VITALS: O2SAT 99
[2024-11-23] MEDS ORDERED: BABY ASPIRIN 81 MG CHEW ONE (02:05)
[2024-11-23] MEDS: BABY ASPIRIN 81 MG CHEW PO ONE (02:05)
[2024-11-23 02:10] LABS: Absolute Neutrophil Ct (ANC) 7.08 x10^3/uL (1.78-5.38); BASOPHIL % 0.5 % (0.2-1.2); Basophil (Absolute #) 0.06 x10^3/uL (0.01-0.08); Eosinophil % 1.8 % (0.8-7.0); Eosinophil (Absolute #) 0.23 x10^3/uL (0.04-0.54); Hematocrit 35.1 % (40.1-51.0); Hemoglobin 11.9 g/dL (13.7-17.5); IMMATURE GRAN # 0.04 x10^3u/L (0.001-0.031); IMMATURE GRAN % 0.3 % (0.001-0.429); Lymphocyte (Absolute #) 4.53 x10^3/uL (1.32-3.57); Lymphocytes % 34.7 % (21.8-53.1); Mean Cell Volume 98.9 fL (79.0-92.2); Mean Corpuscular Hemoglobin 33.5 pg (25.7-32.2); Mean Corpuscular Hgb Concent. 33.9 g/dL (32.3-36.5); Mean Platelet Volume 9.7 fL (9.4-12.4); Monocyte (Absolute #) 1.13 x10^3/uL (0.30-0.82); Monocytes % 8.6 % (5.3-12.2); Neutrophil % 54.1 % (34.0-67.9); Platelet Count 182 x10^3/uL (163-337); Red Blood Count 3.55 x10^6/uL (4.63-6.08); Red Cell Distribution Width 13.6 % (11.6-14.4); White Blood Count 13.1 x10^3/uL (4.23-9.07)
[2024-11-23 02:24] LABS: ALBUMIN 4.5 g/dL (3.5-5.0); ANION GAP 13.5 MEQ/L (5-15); BILIRUBIN,TOTAL 0.9 mg/dL (0.2-1.3); Calcium 8.9 mg/dL (8.4-10.2); Creatinine 1 1.59 mg/dL (0.66-1.25); EST GLOMERULAR FILTRATION RATE 42.3 ML/MIN; MAGNESIUM 1.9 mg/dL (1.6-2.3); Potassium 4.5 mmol/L (3.5-5.1); Total Protein 7.5 g/dL (6.3-8.2)
[2024-11-23 02:35] LABS: NT PRO BNPII 498 pg/mL (<300); TROPONIN < 0.012 ng/mL (0.000-0.033)
[2024-11-23 05:03] VITALS: RESP 19
[2024-11-23 05:41] VITALS: BP 186/85; PULSE 60
--- NOTE | 2024-11-23 09:25 | XRAY ---
Indication: Chest pain. Comparison: September 17, 2023 Portable chest demonstrates stable minimal right mid lung subsegmental/scarring. Remaining heart and lungs unremarkable again with left pacemaker. Bony thorax intact again with osteopenia and degenerative changes. No new/acute findings.
== END 2024-11-23 05:52 | disposition home or self-care (01) ==
LOC: ED 01:00
DX: R07.9 Chest pain, unspecified (principal); E78.5 Hyperlipidemia, unspecified; E11.22 Type 2 diabetes mellitus with diabetic chronic kidney disease; N18.9 Chronic kidney disease, unspecified; Z79.899 Other long term (current) drug therapy
CPT/HCPCS: 36415; 71045; 80053; 83735; 83880; 84484; 85025; 93005; 93041; 94760; 99284; 99285; A9270-GY